=== PATIENT | female | born 1945 | race Caucasian/White ===

== ENCOUNTER 2016-10-14 15:01 | Emergency (ER) | payer MEDICARE, MEDICAID ==
[2016-10-14 18:59] VITALS: BP 146/62
[2016-10-14] MEDS ORDERED: Ondansetron ODT TAB* 4 MG PO ONE (19:47)
--- NOTE | 2016-10-14 20:31 | ED ---
Osmin Marcelino Erika, scribed for Bettie Augustine MD on 10/14/16 at 1949 . Abdominal Pain/Female - HPI Summary HPI Summary: Patient is a 71-year-old female presenting to the ED with a CC of abdominal cramping today. She reports that she had a sandwich around 10:00 today, after which she had two large, formed BMs. She states she rarely has BMs, so this was unusual for her. Afterwards, she developed lower abdominal cramping. These have since resolved, but pt does still note nausea. Pt denies chest pressure. Patient also reports that she does not feel safe at home. She describes herself as "intuitive," and states that she aware that "somebody is going to do something sinister." Pt also reports that she has been diagnosed with depersonalization schizophrenia and excitability. She takes risperidone. Hx hernia. Pt is a former smoker, and does not currently drink. She lives at [facility]. PCP Dr. Arroyo. - History of Current Complaint Chief Complaint: EDAbdPain Stated Complaint: ABD PAIN/NAUSEA Time Seen by Provider: 10/14/16 19:25 Hx Obtained From: Patient Onset/Duration: Gradual Onset, Lasting Hours, Resolved Timing: Constant Severity Initially: Mild Severity Currently: None Pain Intensity: 2 Pain Scale Used: 0-10 Numeric Location: Discrete At: RLQ, Discrete At: LLQ, Suprapubic Radiates: No Character: Cramping Aggravating Factor(s): Food Alleviating Factor(s): Spontaneous Resolution Associated Signs and Symptoms: Positive: Nausea Allergies/Adverse Reactions: Allergies Allergy/AdvReac Type Severity Reaction Status Date / Time No Known Allergies Allergy Verified 10/14/16 15:14 PMH/Surg Hx/FS Hx/Imm Hx Endocrine/Hematology History: Denies: Hx Diabetes, Hx Thyroid Disease Cardiovascular History: Denies: Hx Congestive Heart Failure, Hx Hypertension Respiratory History: Denies: Hx Asthma, Hx Chronic Obstructive Pulmonary Disease (COPD) GI History: Reports: Hx Gastroesophageal Reflux Disease, Other GI Disorders - Chronic constipation Denies: Hx Ulcer History: Denies: Hx Dialysis, Hx Renal Disease Musculoskeletal History: Reports: Hx Arthritis Sensory History: Reports: Hx Contacts or Glasses Opthamlomology History: Reports: Hx Contacts or Glasses Neurological History: Reports: Other Neuro Impairments/Disorders - Schizophrenia Psychiatric History: Reports: Hx Anxiety, Hx Inpatient Treatment, Hx Community Mental Health Tx, Hx Schizophrenia Denies: Hx Eating Disorder, Hx Depression, Hx Panic Disorder, Hx Post Traumatic Stress Disorder, Hx Suicide Attempt, Hx of Violent Episodes Against Others, Hx Substance Abuse Infectious Disease History: No Infectious Disease History: Denies: Hx Clostridium Difficile, Hx Hepatitis, Hx Human Immunodeficiency Virus (HIV), Hx of Known/Suspected MRSA, Hx Shingles, Hx Tuberculosis, Hx Known/ Suspected VRE, Hx Known/Suspected VRSA, History Other Infectious Disease, Traveled Outside the [place] in Last 30 Days - Family History Known Family History: Positive: Other - breast cancer - Social History Lives: Retirement - [facility] Alcohol Use: None Hx Substance Use: No Substance Use Type: Reports: None Hx Tobacco Use: Yes Smoking Status (MU): Former Smoker Review of Systems Negative: Chest Pain Positive: Abdominal Pain, Nausea, Other - increased BM frequency All Other Systems Reviewed And Are Negative: Yes Physical Exam Triage Information Reviewed: Yes Vital Signs On Initial Exam: Initial Vitals Temp Pulse Resp BP Pulse Ox 99.2 F 93 18 125/97 93 10/14/16 15:14 10/14/16 15:14 10/14/16 15:14 10/14/16 15:14 10/14/16 15:14 Vital Signs Reviewed: Yes Appearance: Positive: Well-Appearing, No Pain Distress Skin: Positive: Warm, Skin Color Reflects Adequate Perfusion, Dry Eyes: Positive: EOMI, JULIANA ENT: Positive: Pharynx normal, TMs normal Neck: Positive: Supple, Nontender Respiratory/Lung Sounds: Positive: Clear to Auscultation, Breath Sounds Present. Negative: Rales, Rhonchi, Wheezes Cardiovascular: Positive: RRR, Other - No gallops. Negative: Murmur, Rub Abdomen Description: Positive: Nontender, Soft, Other: - No rebound. Negative: Distended, Guarding Bowel Sounds: Positive: Present Musculoskeletal: Positive: Other - BING, no edema Neurological: Positive: Sensory/Motor Intact, Alert, Oriented to Person Place, Time, Other - CN II-XII intact Psychiatric: Positive: Other - Intention tremor, slightly unkempt Diagnostics - Vital Signs Vital Signs Temp Pulse Resp BP Pulse Ox 10/14/16 17:39 65 18 146/62 100 10/14/16 16:23 99.6 F 10/14/16 15:14 99.2 F 93 18 125/97 93 - Laboratory Lab Statement: Any lab studies that have been ordered have been reviewed, and results considered in the medical decision making process. Abdominal Pain Fem Course/Dx - Course Course Of Treatment: very pleasant 71 yo female with long hx of schizophrenia who does not feel safe in her sro, in that she doesn't trust people there, she ate a sandwich at 10 am had abd cramping for an hour and an extra bm, and then some nausea and thought she should come in for an exam. she describes some nausea now, no cp, no upper abd pain, pt refused blood work ok to go home - Diagnoses Provider Diagnoses: Abdominal pain Discharge - Discharge Plan Condition: Stable Disposition: HOME Patient Education Materials: Abdominal Pain (ED) Referrals: Aron Arroyo MD [Primary Care Provider] - The documentation as recorded by the Osmin brewster Erika accurately reflects the service I personally performed and the decisions made by me, Bettie Augustine MD.
== END 2016-10-14 20:12 | disposition home or self-care (01) ==
LOC: ED 15:01
DX: R10.9 Unspecified abdominal pain (principal); F20.9 Schizophrenia, unspecified; Z87.891 Personal history of nicotine dependence
CPT/HCPCS: 99282; A9270-GY

== ENCOUNTER 2018-01-13 14:07 | Inpatient (IN) | payer MEDICAID, MEDICARE ==
[2018-01-13 14:28] LABS: ABS Basophils 0.1 10^3/ul (0-0.2); ABS Eosinophils 0.1 10^3/ul (0-0.6); ABS Lymphocytes 2.3 10^3/ul (1.0-4.8); ABS Monocytes 0.7 10^3/ul (0-0.8); ABS Neutrophils 5.9 10^3/ul (1.5-7.7); ABS Nucleated RBC 0 10^3/ul; Eosinophil % 0.8 % (0-6); Hematocrit 36 % (35-47); Hemoglobin 12.2 g/dl (12.0-16.0); Lymphocyte % 25.9 % (25-47); Mean Corpuscular HGB Conc 34 g/dl (31-36); Mean Corpuscular Hemoglobin 30 pg (27-31); Mean Corpuscular Volume 88 fL (80-97); Mean Platelet Volume 7.3 um3 (7.4-10.4); Nucleated Red Blood Cells % 0.1; Platelet Count 306 10^3/ul (150-450); Red Blood Count 4.12 10^6/ul (4.0-5.4); Red Cell Distribution Width 15 % (10.5-15)
[2018-01-13 14:50] LABS: EGFR Non-African American 85.5 (>60)
[2018-01-13 17:58] LABS: Urine Appearance Clear; Urine Blood 3+ (Negative); Urine Color Yellow; Urine Ketones Trace (Negative); Urine Protein Negative (Negative); Urine Urobilinogen Negative (Negative)
--- NOTE | 2018-01-13 18:38 | ED ---
Tyree Marcelino Stephanie, scribed for Shawn Steven MD on 01/13/18 at 1415 . Psychiatric Complaint - HPI Summary HPI Summary: The pt is a 72 y/o F presenting to the ED with c/o sleep disturbances that began about 1 week ago. Symptoms include decreased PO intake. The pt states she is afraid of single room occupancy. The pt states she feels endangered where she lives although she has lived there for 11 years. The pt states she lives at [place]. The pt denies CP, abd pain and SOB. - History Of Current Complaint Time Seen by Provider: 01/13/18 14:12 Hx Obtained From: Patient ?: No Onset/Duration: Gradual Onset, Lasting Weeks - 1, Still Present Timing: Constant Severity Currently: Moderate Aggravating Factor(s): Nothing Alleviating Factor(s): Nothing Associated Signs And Symptoms: Positive: Sleep Disturbance, Appetite Change - Allergies/Home Medications Allergies/Adverse Reactions: Allergies Allergy/AdvReac Type Severity Reaction Status Date / Time No Known Allergies Allergy Verified 01/05/18 23:47 PMH/Surg Hx/FS Hx/Imm Hx Endocrine/Hematology History: Denies: Hx Diabetes Cardiovascular History: Reports: Hx Myocardial Infarction Denies: Hx Hypertension Sensory History: Denies: Hx Legally Blind EENT History: Denies: Hx Deafness Psychiatric History: Reports: Hx Schizophrenia - Surgical History Surgery Procedure, Year, and Place: n/a - Family History Known Family History: Negative: Diabetes - Social History Occupation: Disabled Lives: Alone Alcohol Use: None Hx Substance Use: No Substance Use Type: Reports: None Hx Tobacco Use: No Smoking Status (MU): Never Smoked Tobacco Have You Smoked in the Last Year: No Review of Systems Negative: Fever Negative: Chest Pain Negative: Shortness Of Breath Negative: Abdominal Pain All Other Systems Reviewed And Are Negative: Yes Physical Exam - Summary Physical Exam Summary: Appearance: The patient is well-nourished in no acute distress and in no acute pain. Skin: The skin is warm and dry and skin color reflects adequate perfusion. HEENT: The head is normocephalic and atraumatic. The pupils are equal and reactive. The conjunctivae are clear and without drainage. Nares are patent and without drainage. Mouth reveals moist mucous membranes and the throat is without erythema and exudate. The external ears are intact. The ear canals are patent and without drainage. The tympanic membranes are intact. Neck: the neck is supple with full range of motion and non-tender. There are no carotid bruits. There is no neck vein distension. Respiratory: Chest is non-tender. Lungs are clear to auscultation and breath sounds are symmetrical and equal. Cardiovascular: Heart is regular rate and rhythm. There is no murmur or rub auscultated. There is no peripheral edema and pulses are symmetrical and equal. Abdomen: The abdomen is soft and non-tender. There are normal bowel sounds heard in all four quadrants and there is no organomegaly palpated. Musculoskeletal: There is no back tenderness noted. Extremities are non-tender with full range of motion. There is good capillary refill. There is no peripheral edema or calf tenderness elicited. Neurological: Patient is alert and oriented to person, place and time. The patient has symmetrical motor strength in all four extremities. Cranial nerves are grossly intact. Deep tendon reflexes are symmetrical and equal in all four extremities. Psychiatric: The patient has a resting tremor on the R hand, concrete with a flat affect. Triage Information Reviewed: Yes Vital Signs On Initial Exam: Initial Vitals Temp Pulse Resp BP Pulse Ox 99.4 F 86 20 147/76 98 01/13/18 14:56 01/13/18 14:56 01/13/18 14:56 01/13/18 14:56 01/13/18 14:56 Vital Signs Reviewed: Yes Diagnostics - Vital Signs Vital Signs Temp Pulse Resp BP Pulse Ox 01/13/18 14:56 99.4 F 86 20 147/76 98 - Laboratory Lab Results: Lab Results 01/13/18 01/13/18 01/13/18 Range/Units 14:17 14:17 17:43 WBC 9.0 (3.5-10.8) 10^3/ul RBC 4.12 (4.0-5.4) 10^6/ul Hgb 12.2 (12.0-16.0) g/dl Hct 36 (35-47) % MCV 88 (80-97) fL MCH 30 (27-31) pg MCHC 34 (31-36) g/dl RDW 15 (10.5-15) % Plt Count 306 (150-450) 10^3/ul MPV 7.3 L (7.4-10.4) um3 Neut % (Auto) 64.9 (38-83) % Lymph % (Auto) 25.9 (25-47) % Dubois % (Auto) 7.7 H (0-7) % Eos % (Auto) 0.8 (0-6) % Baso % (Auto) 0.7 (0-2) % Absolute Neuts (auto) 5.9 (1.5-7.7) 10^3/ul Absolute Lymphs (auto) 2.3 (1.0-4.8) 10^3/ul Absolute Monos (auto) 0.7 (0-0.8) 10^3/ul Absolute Eos (auto) 0.1 (0-0.6) 10^3/ul Absolute Basos (auto) 0.1 (0-0.2) 10^3/ul Absolute Nucleated RBC 0 10^3/ul Nucleated RBC % 0.1 Sodium 141 (139-145) mmol/L Potassium 3.9 (3.5-5.0) mmol/L Chloride 106 (101-111) mmol/L Carbon Dioxide 27 (22-32) mmol/L Anion Gap 8 (2-11) mmol/L BUN 17 (6-24) mg/dL Creatinine 0.68 (0.51-0.95) mg/dL Est GFR ( Amer) 110.0 (>60) Est GFR (Non-Af Amer) 85.5 (>60) BUN/Creatinine Ratio 25.0 H (8-20) Glucose 100 (70-100) mg/dL Calcium 9.4 (8.6-10.3) mg/dL Total Bilirubin 0.40 (0.2-1.0) mg/dL AST 25 (13-39) U/L ALT 16 (7-52) U/L Alkaline Phosphatase 59 (34-104) U/L Total Protein 7.3 (6.4-8.9) g/dL Albumin 4.1 (3.2-5.2) g/dL Globulin 3.2 (2-4) g/dL Albumin/Globulin Ratio 1.3 (1-3) TSH 0.77 (0.34-5.60) mcIU/mL Urine Color Yellow Urine Appearance Clear Urine pH 6.0 (5-9) Ur Specific Wenham 1.020 (1.010-1.030) Urine Protein Negative (Negative) Urine Ketones Trace A (Negative) Urine Blood 3+ A (Negative) Urine Nitrate Negative (Negative) Urine Bilirubin Negative (Negative) Urine Urobilinogen Negative (Negative) Ur Leukocyte Esterase 1+ A (Negative) Urine WBC (Auto) 1+(6-10/hpf) A (Absent) Urine RBC (Auto) 3+(>10/hpf) A (Absent) Urine Bacteria 1+ A (Absent) Urine Glucose Negative (Negative) Salicylates < 2.50 (<30) mg/dL Urine Opiates Screen (None Detect) Acetaminophen < 15 mcg/mL Ur Barbiturates Screen (None Detect) Ur Phencyclidine Scrn (None Detect) Ur Amphetamines Screen (None Detect) U Benzodiazepines Scrn (None Detect) Urine Cocaine Screen (None Detect) U Cannabinoids Screen (None Detect) Serum Alcohol < 10 (<10) mg/dL 01/13/18 Range/Units 17:43 WBC (3.5-10.8) 10^3/ul RBC (4.0-5.4) 10^6/ul Hgb (12.0-16.0) g/dl Hct (35-47) % MCV (80-97) fL MCH (27-31) pg MCHC (31-36) g/dl RDW (10.5-15) % Plt Count (150-450) 10^3/ul MPV (7.4-10.4) um3 Neut % (Auto) (38-83) % Lymph % (Auto) (25-47) % Dubois % (Auto) (0-7) % Eos % (Auto) (0-6) % Baso % (Auto) (0-2) % Absolute Neuts (auto) (1.5-7.7) 10^3/ul Absolute Lymphs (auto) (1.0-4.8) 10^3/ul Absolute Monos (auto) (0-0.8) 10^3/ul Absolute Eos (auto) (0-0.6) 10^3/ul Absolute Basos (auto) (0-0.2) 10^3/ul Absolute Nucleated RBC 10^3/ul Nucleated RBC % Sodium (139-145) mmol/L Potassium (3.5-5.0) mmol/L Chloride (101-111) mmol/L Carbon Dioxide (22-32) mmol/L Anion Gap (2-11) mmol/L BUN (6-24) mg/dL Creatinine (0.51-0.95) mg/dL Est GFR ( Amer) (>60) Est GFR (Non-Af Amer) (>60) BUN/Creatinine Ratio (8-20) Glucose (70-100) mg/dL Calcium (8.6-10.3) mg/dL Total Bilirubin (0.2-1.0) mg/dL AST (13-39) U/L ALT (7-52) U/L Alkaline Phosphatase (34-104) U/L Total Protein (6.4-8.9) g/dL Albumin (3.2-5.2) g/dL Globulin (2-4) g/dL Albumin/Globulin Ratio (1-3) TSH (0.34-5.60) mcIU/mL Urine Color Urine Appearance Urine pH (5-9) Ur Specific Wenham (1.010-1.030) Urine Protein (Negative) Urine Ketones (Negative) Urine Blood (Negative) Urine Nitrate (Negative) Urine Bilirubin (Negative) Urine Urobilinogen (Negative) Ur Leukocyte Esterase (Negative) Urine WBC (Auto) (Absent) Urine RBC (Auto) (Absent) Urine Bacteria (Absent) Urine Glucose (Negative) Salicylates (<30) mg/dL Urine Opiates Screen None detected (None Detect) Acetaminophen mcg/mL Ur Barbiturates Screen None detected (None Detect) Ur Phencyclidine Scrn None detected (None Detect) Ur Amphetamines Screen None detected (None Detect) U Benzodiazepines Scrn None detected (None Detect) Urine Cocaine Screen None detected (None Detect) U Cannabinoids Screen None detected (None Detect) Serum Alcohol (<10) mg/dL Result Diagrams: 01/13/18 14:17 01/13/18 14:17 Lab Statement: Any lab studies that have been ordered have been reviewed, and results considered in the medical decision making process. Course/Dx - Course Course Of Treatment: Ms. Wilburn presents with some paramoia about her living situation. She was cooperative here and medically cleared and is currently waiting for a MHE. - Differential Dx/Clinical Impression Provider Diagnosis: Delusional disorder Discharge - Sign-Out/Discharge Documenting (check all that apply): Sign-Out Patient Signing out patient TO: Kiersten Landry - Discharge Plan Condition: Stable Referrals: Aron Arroyo MD [Primary Care Provider] - - Billing Disposition and Condition Condition: STABLE The documentation as recorded by the Tyree brewster Stephanie accurately reflects the service I personally performed and the decisions made by me, Shawn Steven MD.
--- NOTE | 2018-01-13 20:26 | ED ---
Ephraim Marcelino Nikita, scribed for Kiersten Landry MD on 01/13/18 at 2016 . Progress - Progress Note Progress Note: This patient was signed out from Dr. Steven to Dr. Landry, pending disposition, awaiting MHE. MHE done at 1907. The patient will be admitted to [facility] voluntarily to Dr. Augustine with a dx of schizophrenia. The patient agrees with this plan. - Consult/PCP Time Called: 18:00 Course/Dx - Diagnoses Provider Diagnoses: Schizophrenia Discharge - Sign-Out/Discharge Documenting (check all that apply): Receiving Sign-Out Receiving patient FROM: Shawn Steven - Discharge Plan Condition: Stable Disposition: ADMITTED TO [facility] Referrals: Aron Arroyo MD [Primary Care Provider] - The documentation as recorded by the Ephraim brewster Nikita accurately reflects the service I personally performed and the decisions made by Frantz montes Abdul, MD.
[2018-01-13] MEDS ORDERED: Al Hydrox/Mg Hydrox/Simet LIQ* 30 ML UDC PO PRN (20:33)
[2018-01-13] MEDS ORDERED: Acetaminophen TAB* 325 MG PO PRN (20:33)
[2018-01-13] MEDS ORDERED: Ondansetron ODT TAB* 4 MG PO PRN (20:38)
[2018-01-13] MEDS ORDERED: Aspirin TAB* 325 MG PO PRN (20:38)
[2018-01-13] MEDS ORDERED: Ziprasidone CAP* 80 MG ONE (22:33)
[2018-01-13] MEDS: Ziprasidone CAP* 80 MG PO SCH (22:34)
[2018-01-14] MEDS ORDERED: Ondansetron ODT TAB* 4 MG ONE (00:07)
[2018-01-14] MEDS: Vitamin THERAPEUTIC TAB PO SCH (09:48)
--- NOTE | 2018-01-14 14:09 | CONS ---
CC: Dr. Arroyo * [facility] MEDICINE CONSULTATION REPORT: DATE OF CONSULT: 01/14/18 PRIMARY CARE PHYSICIAN: Dr. Arroyo. ATTENDING PHYSICIAN: Elaine Ramires MD (dictation provided by Ranjana Jefferson NP). REASON FOR CONSULTATION: Medical management of possible CAD. HISTORY OF PRESENT ILLNESS: Ms. Wilburn is a 72-year-old female with a past medical history of schizophrenia, who presented to the hospital on 01/13/18 with concern for paranoia. She presents as Emanuel Wilburn today but is also known as Marlin Cordova. Please see the dictated information from the emergency room providers for complete details as well as the history and physical from the mental health provider, which is pending. The patient was reported to feel paranoid about people trying to harm her in the community and deemed appropriate for admission to the mental health unit. The patient reported a history of mitral valve prolapse to the psychiatrist and [facility] was asked to review the case. Ms. Wilburn does confirm that she has this history of mitral valve prolapse. She states she has no other cardiac history. She denies ever having seen a health and safety technician. She follows with Dr. Arroyo outpatient for her primary care provider, she says "sometimes." She cannot tell me the last time she saw him. She reports that she is healthy and takes no medications regularly other than the Geodon. She denies any symptoms for me today. She reports that she would be easily able to walk up a flight of stairs with no problems. She has no chest pain or shortness of breath with her regular activities. She further denies nausea, vomiting, abdominal pain, dysuria or frequency. On review yesterday, Ms. Wilburn had labs, which showed normal hemoglobin and hematocrit. She has known electrolyte abnormalities. Her hemoglobin A1c is 5.8. Her cholesterol is quite good with LDL of 122, HDL of 76.1, total cholesterol 210. Her urine does show 1+ leuk esterase and 1+ bacteria. PAST MEDICAL HISTORY: 1. Questionable mitral valve prolapse per the patient's report. 2. Schizophrenia. ALLERGIES: No known drug allergies. FAMILY HISTORY: Reviewed and noncontributory. SOCIAL HISTORY: No report of alcohol, tobacco or drug use. The patient lives alone at [place]. REVIEW OF SYSTEMS: A 14-point review of systems was completed with Ms. Wilburn and all those not mentioned above were negative. PHYSICAL EXAM: Vital Signs: Temperature 97.5, pulse rate 59, respiratory rate 16, O2 saturation 98% on room air, blood pressure 106/63. General: Ms. Wilburn is found in the milieu speaking with counselors and she is smiling and cooperative. Neuro: She is alert. She is oriented x3. She moves all extremities equally. There is no facial asymmetry or focal weakness. Extraocular movements are intact. Heart: S1 and S2. No murmur, rub or gallop today. Lungs: Clear to auscultation bilaterally with no accessory muscle use and good aeration. Abdomen: Soft and nontender with bowel sounds positive x4. Extremities: No cyanosis, no edema. Skin is intact. DIAGNOSTIC STUDIES/LAB DATA: Again, the WBC is 9.0, hemoglobin 12.2, hematocrit 36, platelet count 306. Sodium 141, potassium 3.9, chloride 106, serum bicarbonate 27, BUN 17, creatinine 0.68, glucose 100. Hemoglobin A1c 5.8. Urine shows 1+ leuk esterase, 1+ bacteria. Toxicology screen is negative. ASSESSMENT: Ms. Wilburn is a 72-year-old female with a known history of schizophrenia, who was admitted to the mental health unit on 01/13/18 with concern of paranoia. Psychiatrist has consulted medical team regarding management of any possible associated medical conditions. RECOMMENDATIONS: Our recommendations are as follows: 1. Schizophrenia. Continue management per mental health team. 2. Mitral valve prolapse. The patient has no significant murmur on examination today. She is completely asymptomatic per her report. It will be helpful to get the records from Dr. Arroyo's office on Tuesday to help further clarify her medical history as given her associated schizophrenia and she may be a poor historian. 3. CAD. Patient denies. The patient has no other abnormality on labs or vital signs that would require any management and again she is asymptomatic. On Tuesday, we can review the records from Dr. Arroyo's office. In the meantime , if the patient becomes symptomatic in any way, the team has been asked to call Hospital Medicine. 4. Urinary tract infection. The patient does have a positive leukocyte esterase and bacteria. However, she was here on 01/06/18 and had a urine culture which was negative. The patient denies any symptoms at this point. IPlan to await urine culture before beginning any antibiotics given that she is asymptomatic. 5. Code status is full code. 6. Hospital Medicine will follow along at a distance. If there are any questions, please do not hesitate to contact us. TIME SPENT: Approximately 40 minutes was spent on the consultation of this patient, more than half the time was spent with the patient at the bedside reviewing the events of this hospitalization thus far and her medical history, performing the physical examination, and reviewing the plan of care. RANJANA JEFFERSON, DEMETRA [id number]/CPS #: [id number] JORGE
--- NOTE | 2018-01-14 16:04 | HP ---
HISTORY AND PHYSICAL: DATE OF ADMISSION: 01/13/18 SOURCE OF INFORMATION: The patient is a limited historian. This note is dictated based on interview with the patient and admission data. Although the patient reports a history of previous admissions here, I could not find previous records. IDENTIFYING DATA: Ms. Wilburn is a 72-year-old female, [facility] resident, who was brought in by ambulance from her facility and she was admitted on voluntary status. CHIEF COMPLAINT: "I guess nervous exhaustion!" HISTORY OF PRESENT ILLNESS: Emanuel reports having diagnoses of schizophrenia and "depersonalization disorder," for which she is in outpatient treatment at [facility] and she is prescribed Geodon. She relates that her living environment is "getting too much to handle" and that she is in the process of moving to another facility at the [facility]. She is convinced that her food is being tampered with, asserts that she saw staff member put hand lotion in her food and her lips felt different after ingesting the food. She has resorted to eating as little as possible at her facility. She also complains that "nobody likes her there" and she does not like the staff and the other residents herself. She avidly denies any auditory or visual hallucinations. Notes indicate that the patient was sent by ambulance from the [facility] by facility staff because she had been increasingly paranoid over recent weeks, she was convinced that others were out to get her. She had demonstrated agitation and lack of sleep for several days to week. She had also not been able to care for herself and to engage in activities of daily living. REVIEW OF PSYCHIATRIC SYMPTOMS: The patient avidly denies persistently depressed mood. She denies symptoms of giselle, although she presents as somewhat pressured in speech with flight of idea and she endorses irritability and mood lability. The patient has diagnosis of schizophrenia. She denies auditory or visual hallucinations. She describes paranoid delusions that her food is being tampered with, that she is not liked by others and that others are out to get her. She is also disorganized in her thinking and her behavior. She denies difficulty with anxiety. She denies any history of trauma or abuse or PTSD symptoms. She denies history of substance abuse. She denies symptoms of eating disorder. PAST PSYCHIATRIC HISTORY: The patient relates this is either her third or fourth inpatient psychiatric admission here in this facility and the most recent time was about 2 years ago. I could not find previous records. She is diagnosed with schizophrenia. She has been in outpatient care of [facility] for over 10 years. She sees a community nurse, Gerald Haile, and outpatient psychiatrist, Dr. Marlena Anderson. She is prescribed Geodon 40 mg daily at bedtime, but admits to only taking half the dose and to using the medication for insomnia because she does not think that she has any mental illness. SUICIDE/HOMICIDE HISTORY: The patient denies previous jonas suicide attempt, history of self-injury, or violence. PAST MEDICAL HISTORY: She denies any active medical problems, any history of head trauma with loss of consciousness, seizures or surgeries. She is followed at [facility] by Dr. Aron Arroyo. PAST SURGICAL HISTORY: Umbilical hernia repair about 2 years ago. FAMILY HISTORY: The patient denies any family history of psychiatric illnesses or completed suicides. PERSONAL AND SOCIAL HISTORY: The patient relates that she was born in [place], [place]. She grew up with both parents and a sister who is 2 years older and a brother who is 10 years younger. Both parents are . She is remote from siblings. She has a 1st grade education, but is able to read. 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 She asserts that she has been for 9 years and that her lives in the same facility that she does. She describes unhappiness with her living situation there and her efforts to move out. REVIEW OF MEDICAL SYMPTOMS: The patient presents with some degree of hirsutism with facial hair. PHYSICAL EXAMINATION GENERAL: She does not appear, however, to be in any acute physical distress. She is alert, oriented x3. HEENT: Head atraumatic, normocephalic, symmetrical. Eyes: PERRLA. Tympanic membranes intact. Sclerae anicteric. Conjunctivae clear. NECK: Trachea midline, freely mobile. No cervical lymphadenopathy. No nuchal rigidity. LUNGS: Clear to auscultation bilaterally. HEART: Regular rate and rhythm. S1, S2. No murmurs, gallops, or rubs. BREASTS: Exam not performed. ABDOMEN: Soft, nontender. No masses, organomegaly, or rebound tenderness. Active bowel sounds in all 4 quadrants. EXTREMITIES: No pain or limitation in the range of movement. Pulses are equal in all 4 extremities. Fine tremors of upper extremities are observed. GENITALIA: Exam not performed. RECTAL: Exam not performed. NEUROLOGIC: Cranial nerves II through XII are intact. Cerebellar function intact. Muscle strength grade 4/5 in all 4 extremities. STRUCTURAL EXAM: The patient examined in both supine and upright positions. No gross AP or lateral asymmetry. Gait and movement are within normal limits. SKIN: Skin texture, turgor and pigmentation are within normal limits. LABORATORY DATA ON ADMISSION: CBC within normal limits. Complete metabolic panel shows BUN/creatinine ratio of 25. Hemoglobin A1c of 5.8. Urinalysis shows trace of ketones, 3+ blood, 1+ leukocyte esterase, 1+ wbc's, 3+ rbc's, 1+ urine bacteria. Urine toxicology screen is negative for all the tested substances. MENTAL STATUS EXAMINATION: Finds an averagely built 72-year-old white female with long uncombed graying hair, wearing a collared button shirt and jeans. She presents as somewhat disheveled. She is however calm, psychotically related. Some tremors of her upper extremities are observed. Speech has a pressured quality. Her affect is irritable. Mood is dysphoric. There is some evidence of flight of idea and tangentiality. She avidly denies auditory or visual hallucinations, but does present as grossly delusional. She denies suicidal or homicidal ideation or urges to self-mutilate and she contracts for safety. Insight and judgment are grossly impaired. Impulse control is tenuous in this setting. She is alert. She is oriented to time, place and person. SUMMARY: A 72-year-old female with history of psychiatric hospitalizations, questionable adherence to outpatient care, previous diagnosis of schizophrenia, who was referred from [facility] by ambulance because of increasing paranoia, agitation and inability to care for herself. Medical history is unremarkable. The patient denies any family history of psychiatric illnesses or completed suicide. She describes stressors of unhappiness with her current living situation and feeling somewhat socially isolated. DIAGNOSTIC IMPRESSIONS: Schizophrenia, chronic, paranoid type. TREATMENT PLAN: Admit to mental health unit, 15-minute checks, full code status. Legal status is voluntary. Initiate comprehensive milieu, individual and group psychotherapeutic support. Medication management will involve continuation of trial of Geodon 80 mg at bedtime and consulting with Dr. Anderson on Tuesday. Discharge planning will involve coordination of her aftercare with [facility] and [facility]. [id number]/CPS #: [id number] JORGE
[2018-01-14] MEDS: Ziprasidone CAP* 80 MG PO SCH (22:04)
[2018-01-15] MEDS: Vitamin THERAPEUTIC TAB PO SCH (09:31)
[2018-01-15] MEDS: Ziprasidone CAP* 80 MG PO SCH (22:22)
[2018-01-16 07:42] VITALS: BP 135/77
[2018-01-16] MEDS: Vitamin THERAPEUTIC TAB PO SCH (08:35)
--- NOTE | 2018-01-18 08:22 | DS ---
AMENDED REPORT NOW INCLUDES COSIGNER DESIGNATION - ESIGNED BEFORE ADJUSTMENT CC: [facility], Dr. Anderson; Daniel Haile; Dr. Arroyo, primary care provider * DISCHARGE SUMMARY: DATE OF ADMISSION: 01/13/18 DATE OF DISCHARGE: 01/16/18 PRIMARY CARE PROVIDER: Dr. Arroyo. ATTENDING PROVIDER: Tito Augustine MD* (DICTATED BY FLOR WHITE NP) DISCHARGE DIAGNOSIS: Schizophrenia. CONDITION AT TIME OF DISCHARGE: Guarded, unchanged. The patient states she came to the hospital because she needed to get away from the [facility] for a few days. The patient states "but now I am better and I want to leave." She states that she does not like the food, the people or the environment here and is eager to return to the [facility]. She states that her lives next door and they have a positive relationship. The patient states that she goes to see Daniel Haile at the clinic but primarily does go to people who work for him. She states she does not need nor is she interested in therapy. She reports taking her medications. The patient has requested to talk with us either about need for a sleep aid and she states she would rather pursue this through her outpatient psychiatrist, Dr. Anderson, as Demetriana primarily helps her sleep. The patient denies paranoia. She states that no one is threatening her or wanting to kill her. She feel safe at the [facility] and denies SI, HI or . MENTAL STATUS EXAM: The patient is petite, black haired woman who appears stated age. She is adequately groomed. She has combed her hair and wearing her own clothing. She oscillates between cooperative and irritable. She is alert and oriented x3. Her memory is 3/3. Her fund of knowledge is adequate. Speech is normal rhythm, rate and volume. Her mood is initially irritable and euthymic. Her affect is restricted. Thought process is linear with evidence of future orientation. Thought content is positive for fixed delusions. The patient has poor insight, she has schizophrenia. Her judgement is good. She is able to perform her own ADL's. Fund of knowledge is adequate. DISCHARGE INSTRUCTIONS: A. Medications: Were unchanged. As she was here less than 4 days, we did not need to renew her prescriptions. She will continue with the followin. Aspirin 650 mg p.o. q.4 hours p.r.n. fever, pain. 2. Ondansetron 4 mg p.o. t.i.d. p.r.n. nausea. 3. Ziprasidone 80 mg p.o. at bedtime. B. Diet: Regular. C. Activity: Ambulation as tolerated. D. Tobacco cessation: Not applicable. There are no studies pending at the time of discharge. E. Followup care: The patient will follow up at [facility] with her nurse therapist Daniel February, 01/13/18, at 4 p.m. and she will see the psychiatrist, Dr. Anderson, , 01/26/18, at 3 p.m. She has an appointment with her primary care provider Dr. Arroyo on Tuesday at 1 p.m. F. Substance abuse followup: Not applicable. HOSPITAL COURSE: Part A: Reason for admission: Emanuel is a 72-year-old domicile white female. She has a history of changing her names often. She has also been known as Marlin Cordova and Irina Prather. She is well known to this [facility] and to this unit due to previous admissions. She presented to the emergency department via ambulance and referred by the [facility]. She was noted to have paranoia at the [facility]. There has been hope moving to another facility called [facility]. The patient reported her food was being tampered with and had paranoid delusions about this fact as well. The patient was agreeable to admission to the [facility] and admitted on a voluntary basis. While in the emergency department, her lab was done. CBC was grossly unremarkable. CMP within normal limits with her BUN and creatinine ratio of 25. TSH 0.77. She had a hemoglobin A1c and lipid panel due to antipsychotic treatment. A1c was 5.8. Lipid panel within normal limits. Urinalysis was positive for ketones, blood and bacteria. Urine culture came back negative. Toxicology negative for salicylates, acetaminophen and alcohol and her urine drug screen was negative. Part B: Psychiatric treatment rendered: The patient was admitted to the adult behavioral service unit on voluntary status on code status as full. She was encouraged to participate in supportive milieu and individual sessions with staff and psychoeducational groups. Her usual behavior, the patient was isolative and did not participate in groups. She was verbally aggressive at times but otherwise in behavioral control. The patient was compliant with medication and was safe on all checks. Due to her cardiac history, hospitalist service was consulted. The patient has a history of MT and MVP. As stated above, the patient was asymptomatic and there was no need for treatment with antibiotics as her urine culture was negative. On day of discharge, the patient reported readiness. She stabilized rapidly and improved after her first full day. No medications were done. The patient has agreed to continue with current regimen, tried to reach out to her nurse therapist and there has not been any significant collateral information that would cause alarm or need for continued hospitalization. Social Work collaborated with [facility] who agreed to have patient return. Due to obligation for treatment with respective studies, treatment team decided upon discharge. Again, patient denies SI, HI or . She has fixed delusions about schizophrenia being related to cult. She states she no longer watches TV shows and movies that cause depersonalization. The patient was very much appreciative and noted to have improvement in affect and communication when notified of planned discharge. FLOR WHITE NP [id number]/CPS #: [id number] JORGE
== END 2018-01-16 17:05 | disposition home or self-care (01) | DRG 885 ==
LOC: ED 14:07 → MERGE 22:44 → BSU 22:44
PROVIDERS: ADMIT Psychiatry & Neurology Psychiatry; ATTEND Psychiatry & Neurology Psychiatry
DX: F20.0 Paranoid schizophrenia (principal)
CPT/HCPCS: 36415; 80053; 80061; 80307; 80320; 80329; 81003; 81015; 83036; 84443; 85025; 87086; 99222; 99238; 99284; A9270-GY; G0480

== ENCOUNTER 2018-02-17 11:22 | Emergency (ER) | payer MEDICAID, MEDICARE ==
[2018-02-17 11:28] VITALS: BP 152/125
[2018-02-17] MEDS ORDERED: Acetaminophen TAB* 325 MG PO ONE (11:42)
--- NOTE | 2018-02-17 13:36 | ED ---
Upper Extremity Pain - HPI Summary HPI Summary: Patient is a 73-year-old female who presents emergency department for right upper arm pain times one and half years. Patient does not recall any specific injuries or falls. Pain is worse with movement and better with rest. She states she has not taken any medication [id number] for discomfort. Patient states she presents to the ER today to have pain fixed. Past medical history of schizophrenia. Symptoms are mild in severity. - History of Current Complaint Chief Complaint: EDExtremityUpper Stated Complaint: RT UPPER EXTREMITY PAIN Time Seen by Provider: 02/17/18 11:30 Hx Obtained From: Patient - Allergies/Home Medications Allergies/Adverse Reactions: Allergies Allergy/AdvReac Type Severity Reaction Status Date / Time No Known Allergies Allergy Verified 02/17/18 11:24 PMH/Surg Hx/FS Hx/Imm Hx Previously Healthy: Yes Endocrine/Hematology History: Denies: Hx Diabetes, Hx Thyroid Disease Cardiovascular History: Reports: Hx Myocardial Infarction Denies: Hx Congestive Heart Failure, Hx Hypertension Respiratory History: Denies: Hx Asthma, Hx Chronic Obstructive Pulmonary Disease (COPD) GI History: Reports: Hx Gastroesophageal Reflux Disease, Other GI Disorders - Chronic constipation Denies: Hx Ulcer History: Denies: Hx Dialysis, Hx Renal Disease Musculoskeletal History: Reports: Hx Arthritis Sensory History: Denies: Hx Contacts or Glasses, Hx Legally Blind, Hx Deafness, Hx Hearing Aid Opthamlomology History: Denies: Hx Contacts or Glasses, Hx Legally Blind Neurological History: Reports: Other Neuro Impairments/Disorders - Schizophrenia Psychiatric History: Reports: Hx Anxiety, Hx Inpatient Treatment, Hx Community Mental Health Tx, Hx Schizophrenia Denies: Hx Eating Disorder, Hx Depression, Hx Panic Disorder, Hx Post Traumatic Stress Disorder, Hx Suicide Attempt, Hx of Violent Episodes Against Others, Hx Substance Abuse - Surgical History Surgery Procedure, Year, and Place: n/a Infectious Disease History: No Infectious Disease History: Denies: Hx Clostridium Difficile, Hx Hepatitis, Hx Human Immunodeficiency Virus (HIV), Hx of Known/Suspected MRSA, Hx Shingles, Hx Tuberculosis, Hx Known/ Suspected VRE, Hx Known/Suspected VRSA, History Other Infectious Disease, Traveled Outside the [place] in Last 30 Days - Family History Known Family History: Positive: Other - breast cancer Negative: Diabetes - Social History Alcohol Use: None Hx Substance Use: No Substance Use Type: Reports: None Hx Tobacco Use: No Smoking Status (MU): Never Smoked Tobacco Amount Used/How Often: pt has not used any tobacco products in the last 30 days. Have You Smoked in the Last Year: No Review of Systems Positive: Other - Right shoulder pain. No neck pain. Neurological: Negative Negative: Weakness, Paresthesia, Numbness All Other Systems Reviewed And Are Negative: Yes Physical Exam Triage Information Reviewed: Yes Vital Signs On Initial Exam: Initial Vitals Temp Pulse Resp BP Pulse Ox 97 F 72 16 152/125 98 02/17/18 11:26 02/17/18 11:26 02/17/18 11:26 02/17/18 11:26 02/17/18 11:26 Vital Signs Reviewed: Yes Appearance: Positive: No Pain Distress Skin: Positive: Warm, Dry Head/Face: Positive: Normal Head/Face Inspection Eyes: Positive: Normal Neck: Positive: Supple Musculoskeletal: Positive: Other - Right upper extremity is neurovascular intact. No edema, erythema or wounds. Full range of motion of shoulder with pain. Neurological: Positive: Normal, CN Intact II-III Psychiatric: Positive: Anxious Diagnostics - Vital Signs Vital Signs Temp Pulse Resp BP Pulse Ox 02/17/18 12:16 97 F 72 18 152/125 97 02/17/18 11:26 97 F 72 16 152/125 98 - Laboratory Lab Statement: Any lab studies that have been ordered have been reviewed, and results considered in the medical decision making process. Course/Dx - Course Course Of Treatment: Patient presenting for right shoulder pain times 1.5 yrs without recent injury. She states she's never seen her family doctor for this issue or had x-rays. Offered patient x-rays today which she declined. Patient states she feels the radiation from the x-ray will harm her. Pt. states she just wants her pain treated today. She was given a dose of tylenol in the ER and a rx for tylenol. Advised her to call her PCP today for a f.u apt. To return to ER if sxs change or worsen. - Diagnoses Differential Diagnosis/HQI/PQRI: Positive: Arthritis, Bursitis, Contusion, Fracture (Closed), Hematoma, Strain, Sprain Provider Diagnoses: Shoulder pain Discharge - Sign-Out/Discharge Documenting (check all that apply): Discharge/Admit/Transfer - Discharge Plan Condition: Good Disposition: HOME Prescriptions: Acetaminophen TAB* [Tylenol TAB*] 650 mg PO Q6H PRN #20 tab PRN Reason: Pain Patient Education Materials: Shoulder Pain (ED) Referrals: Aron Arroyo MD [Primary Care Provider] - Additional Instructions: Call your PCP today for a follow up appointment Tylenol as directed for pain Return to ER if symptoms change or worsen - Billing Disposition and Condition Condition: GOOD Disposition: Home
== END 2018-02-17 12:05 | disposition home or self-care (01) ==
LOC: ED 11:22
DX: M25.511 Pain in right shoulder (principal)
CPT/HCPCS: 99282; A9270-GY

== ENCOUNTER 2018-06-03 10:02 | Emergency (ER) | payer MEDICARE, MEDICAID ==
--- NOTE | 2018-06-03 10:26 | ED ---
Complex/Multi-Sys Presentation - HPI Summary HPI Summary: 73 year old F BIB EMS to [facility] complains of nausea since one hour ago this morning after eating breakfast. Symptoms aggravated by nothing. Symptoms alleviated by nothing. Patient denies abdominal pain, vomiting, chest pain, shortness of breath, headache, blurred vision, bilateral lower extremity edema, and dysuria. - History Of Current Complaint Time Seen by Provider: 06/03/18 10:15 Hx Obtained From: Patient Onset/Duration: Sudden Onset, Lasting Hours - 1, Still Present Timing: Constant Aggravating Factor(s): nothing Alleviating Factor(s): nothing Associated Signs And Symptoms: Positive: Other - she denies abdominal pain, vomiting, chest pain, shortness of breath, headache, blurred vision, bilateral lower extremity edema, and dysuria - Allergies/Home Medications Allergies/Adverse Reactions: Allergies Allergy/AdvReac Type Severity Reaction Status Date / Time No Known Allergies Allergy Verified 06/03/18 10:26 Home Medications: Home Medications Aspirin TAB* [Aspirin 325 MG TAB*] 325 mg PO DAILY 06/03/18 [History Confirmed 06/03/18] PMH/Surg Hx/FS Hx/Imm Hx Previously Healthy: No Endocrine/Hematology History: Denies: Hx Diabetes, Hx Thyroid Disease Cardiovascular History: Reports: Hx Myocardial Infarction Denies: Hx Congestive Heart Failure, Hx Hypertension Respiratory History: Denies: Hx Asthma, Hx Chronic Obstructive Pulmonary Disease (COPD) GI History: Reports: Hx Gastroesophageal Reflux Disease, Other GI Disorders - Chronic constipation Denies: Hx Ulcer History: Denies: Hx Dialysis, Hx Renal Disease Musculoskeletal History: Reports: Hx Arthritis Sensory History: Denies: Hx Contacts or Glasses, Hx Legally Blind, Hx Deafness, Hx Hearing Aid Opthamlomology History: Denies: Hx Contacts or Glasses, Hx Legally Blind Neurological History: Reports: Other Neuro Impairments/Disorders - Schizophrenia Psychiatric History: Reports: Hx Anxiety, Hx Inpatient Treatment, Hx Community Mental Health Tx, Hx Schizophrenia Denies: Hx Eating Disorder, Hx Depression, Hx Panic Disorder, Hx Post Traumatic Stress Disorder, Hx Suicide Attempt, Hx of Violent Episodes Against Others, Hx Substance Abuse - Surgical History Surgery Procedure, Year, and Place: n/a Infectious Disease History: Denies: Hx Clostridium Difficile, Hx Hepatitis, Hx Human Immunodeficiency Virus (HIV), Hx of Known/Suspected MRSA, Hx Shingles, Hx Tuberculosis, Hx Known/ Suspected VRE, Hx Known/Suspected VRSA, History Other Infectious Disease - Family History Known Family History: Positive: Other - breast cancer Negative: Diabetes - Social History Alcohol Use: None Hx Substance Use: No Substance Use Type: Reports: None Hx Tobacco Use: No Smoking Status (MU): Never Smoked Tobacco Amount Used/How Often: pt has not used any tobacco products in the last 30 days. Have You Smoked in the Last Year: No Review of Systems Negative: Blurred Vision Negative: Chest Pain Negative: Shortness Of Breath Positive: Nausea. Negative: Abdominal Pain, Vomiting Negative: dysuria Negative: Edema Negative: Headache All Other Systems Reviewed And Are Negative: Yes Physical Exam - Summary Physical Exam Summary: VITAL SIGNS: Reviewed. GENERAL: Patient is an elderly, fragile female who is lying comfortable in the stretcher. Patient is not in any acute respiratory distress. She is having involuntary tremors. HEAD AND FACE: No signs of trauma. No ecchymosis, hematomas or skull depressions. No sinus tenderness. EYES: PERRLA, EOMI x 2, No injected conjunctiva, no nystagmus. EARS: Hearing grossly intact. Ear canals and tympanic membranes are within normal limits. MOUTH: Oropharynx within normal limits. NECK: Supple, trachea is midline, no adenopathy, no JVD, no carotid bruit, no c- spine tenderness, neck with full ROM. CHEST: Symmetric, no tenderness at palpation LUNGS: Clear to auscultation bilaterally. No wheezing or crackles. CVS: Regular rate and rhythm, S1 and S2 present, no murmurs or gallops appreciated. ABDOMEN: Soft, non-tender. No signs of distention. No rebound no guarding, and no masses palpated. Bowel sounds are normal. EXTREMITIES: FROM in all major joints, no edema, no cyanosis or clubbing. NEURO: Alert and oriented x 3. No acute neurological deficits. Speech is normal and follows commands. SKIN: Dry and warm Triage Information Reviewed: Yes Vital Signs Reviewed: Yes Diagnostics - Laboratory Result Diagrams: 06/03/18 11:26 06/03/18 11:26 Lab Statement: Any lab studies that have been ordered have been reviewed, and results considered in the medical decision making process. - EKG 1123 Cardiac Rate: NL - 61 BPM EKG Rhythm: Sinus Rhythm EKG Interpretation: No ST elevations Re-Evaluation - Re-Evaluation First Eval Re-Evaluation Time: 12:35 Comment: patient feels better and would like to go home Complex Multi-Symp Course/Dx Assessment/Plan: This patient is a 73-year-old female who presents to the emergency department with chief complaint of having nausea without vomiting. The patient has past medical history significant for schizophrenia. Patient denies any chest pain or palpitations. Patient denies any abdominal pain diarrhea or constipation. She doesnt complain of any urinary symptoms. EKG shows a normal sinus rhythm without any ST elevations. Patient's blood work without any significant abnormality. Urinalysis is negative for UTI. Patient declines the x-ray of the abdomen to rule out constipation versus obstruction. However obstruction is in the low suspicion since the patient does not have any pain and the nausea has subsided with and Zofran and IV fluids. At this point the patient reports that she wants to go home since she feels better. The patient was given a PO challenge and she did not experience any nausea vomiting after the PO challenge. I discussed all the findings and test results with the patient. Patient was instructed to return to the emergency room immediately if any of the symptoms return or worsens. Plan of care was discussed with the patient and understands and agrees. All questions were answered at patient satisfaction. There were no further complaints or concerns. Lung exam before discharge: CTA B/L. Good air exchange. No wheezing or crackles heard. CVS: S1 and S2 present. No murmurs appreciated. Patient is alert and oriented x 3. Patient is hemodynamically stable. Patient will be discharged home with follow up PCP in the next 2-3 days - Diagnoses Differential Diagnoses/HQI/PQRI: Other - Nausea and vomiting, gastritis, gastroenteritis, constipation, SBO Provider Diagnoses: Nausea Discharge - Sign-Out/Discharge Documenting (check all that apply): Patient Departure - Discharge - Discharge Plan Condition: Stable Disposition: HOME Prescriptions: Ondansetron ODT TAB* [Zofran 4 MG Odt TAB*] 4 mg PO SEE INSTRUCTIONS PRN #10 tab PRN Reason: Nausea Patient Education Materials: Acute Nausea and Vomiting (ED) Referrals: Aron Arroyo MD [Primary Care Provider] - 2 Days Additional Instructions: Follow up with your primary care provider in 2 days. RETURN TO THE EMERGENCY DEPARTMENT FOR NEW OR WORSENING SYMPTOMS. - Billing Disposition and Condition Condition: STABLE Disposition: Home - Attestation Statements Document Initiated by Scribe: Yes Documenting Scribe: Kelly Burnett Provider For Whom Scribe is Documenting (Include Credential): Chase Hannon MD Scribe Attestation: I, Kelly Burnett, scribed for Chase Hannon MD on 06/04/18 at 1033. Scribe Documentation Reviewed: Yes Provider Attestation: The documentation as recorded by the scribeKelly accurately reflects the service I personally performed and the decisions made by me, Chase Hannon MD
[2018-06-03] MEDS ORDERED: NS 0.9% 1000 ML* 1,000 ML IV ONE (10:34)
[2018-06-03] MEDS ORDERED: Ondansetron INJ* 2 MG/ML VIAL IV ONE (10:34)
[2018-06-03 11:18] LABS: Urine Appearance Clear; Urine Blood 1+ (Negative); Urine Color Yellow; Urine Ketones Negative (Negative); Urine Protein Negative (Negative); Urine Red Blood Cell 2+(6-10/hpf) (Absent); Urine Specific Gravity 1.011 (1.010-1.030); Urine Urobilinogen Negative (Negative); Urine White Blood Cell Trace(0-5/hpf) (Absent)
[2018-06-03 11:41] LABS: ABS Basophils 0.1 10^3/ul (0-0.2); ABS Eosinophils 0.1 10^3/ul (0-0.6); ABS Lymphocytes 1.5 10^3/ul (1.0-4.8); ABS Monocytes 0.9 10^3/ul (0-0.8); ABS Neutrophils 5.6 10^3/ul (1.5-7.7); ABS Nucleated RBC 0 10^3/ul; Eosinophil % 0.7 % (0-6); Hematocrit 36 % (35-47); Lymphocyte % 18.5 % (25-47); Mean Corpuscular HGB Conc 34 g/dl (31-36); Mean Corpuscular Hemoglobin 30 pg (27-31); Mean Corpuscular Volume 89 fL (80-97); Mean Platelet Volume 7.2 um3 (7.4-10.4); Nucleated Red Blood Cells % 0; Platelet Count 319 10^3/ul (150-450); Red Cell Distribution Width 15 % (10.5-15); White Blood Count 8.2 10^3/ul (3.5-10.8)
[2018-06-03 12:00] LABS: EGFR Non-African American 94.9 (>60)
[2018-06-03 13:13] VITALS: BP 125/78
== END 2018-06-03 13:11 | disposition home or self-care (01) ==
LOC: ED 10:02
DX: R11.0 Nausea (principal)
CPT/HCPCS: 36415; 80053; 81003; 81015; 83605; 83690; 83735; 85025; 86140; 87086; 93005; 96361; 96374; 99283; J2405

== ENCOUNTER 2019-01-04 15:58 | Emergency (ER) | payer MEDICARE, MEDICAID ==
--- NOTE | 2019-01-04 16:24 | ED ---
Complex/Multi-Sys Presentation - HPI Summary HPI Summary: 73 year old F presenting to [facility] complains of rectal pain since 6 months ago and upper right arm pain since one year ago. The patient rates the pain 8/10 in severity. Symptoms aggravated by nothing. Symptoms alleviated by nothing. Patient denies trauma to her behind or her right arm. Patient denies chest pain , abdominal pain. She denies bloody stools, dark stools. Patient lives in assisted housing. Per patient's counselor, patient has hx schizophrenia and is non compliant with her schizophrenia medication and non compliant with her physician appointments. - History Of Current Complaint Chief Complaint: EDGeneral Time Seen by Provider: 01/04/19 16:12 Hx Obtained From: Patient, Other: - patient's counselor Onset/Duration: Lasting Weeks - 6-12 months, Still Present Timing: Constant Severity Currently: Severe Aggravating Factor(s): Nothing Alleviating Factor(s): Nothing Associated Signs And Symptoms: Positive: Other - NEGATIVE: chest pain, abdominal pain, bloody stools, dark stools - Allergies/Home Medications Allergies/Adverse Reactions: Allergies Allergy/AdvReac Type Severity Reaction Status Date / Time No Known Allergies Allergy Verified 01/04/19 16:08 PMH/Surg Hx/FS Hx/Imm Hx Previously Healthy: No Endocrine/Hematology History: Denies: Hx Diabetes, Hx Thyroid Disease Cardiovascular History: Reports: Hx Myocardial Infarction Denies: Hx Congestive Heart Failure, Hx Hypertension Respiratory History: Denies: Hx Asthma, Hx Chronic Obstructive Pulmonary Disease (COPD) GI History: Reports: Hx Gastroesophageal Reflux Disease, Other GI Disorders - Chronic constipation Denies: Hx Ulcer History: Denies: Hx Dialysis, Hx Renal Disease Musculoskeletal History: Reports: Hx Arthritis Sensory History: Denies: Hx Contacts or Glasses, Hx Legally Blind, Hx Deafness, Hx Hearing Aid Opthamlomology History: Denies: Hx Contacts or Glasses, Hx Legally Blind Neurological History: Reports: Other Neuro Impairments/Disorders - Schizophrenia Psychiatric History: Reports: Hx Anxiety, Hx Inpatient Treatment, Hx Community Mental Health Tx, Hx Schizophrenia Denies: Hx Eating Disorder, Hx Depression, Hx Panic Disorder, Hx Post Traumatic Stress Disorder, Hx Suicide Attempt, Hx of Violent Episodes Against Others, Hx Substance Abuse - Surgical History Surgery Procedure, Year, and Place: n/a Infectious Disease History: No Infectious Disease History: Denies: Hx Clostridium Difficile, Hx Hepatitis, Hx Human Immunodeficiency Virus (HIV), Hx of Known/Suspected MRSA, Hx Shingles, Hx Tuberculosis, Hx Known/ Suspected VRE, Hx Known/Suspected VRSA, History Other Infectious Disease, Traveled Outside the [place] in Last 30 Days - Family History Known Family History: Positive: Other - breast cancer Negative: Diabetes - Social History Alcohol Use: None Hx Substance Use: No Substance Use Type: Reports: None Hx Tobacco Use: No Smoking Status (MU): Never Smoked Tobacco Have You Smoked in the Last Year: No Review of Systems Negative: Chest Pain Gastrointestinal: Negative - bloody stools, dark stools Positive: Other - rectal pain. Negative: Abdominal Pain Positive: Other - upper right arm pain All Other Systems Reviewed And Are Negative: Yes Physical Exam - Summary Physical Exam Summary: Appearance: Well appearing, no pain distress Skin: warm, dry, reflects adequate perfusion Head/face: normal Eyes: EOMI, JULIANA ENT: normal Neck: supple, non-tender Respiratory: CTA, breath sounds present Cardiovascular: RRR, pulses symmetrical Abdomen: non-tender, soft Musculoskeletal: tenderness of right arm, no neurological deficits Neuro: normal, sensory motor intact, A&Ox3 Rectal exam chaperoned by nurse Dimple: tenderness upon rectal examination Triage Information Reviewed: Yes Vital Signs On Initial Exam: Initial Vitals Temp Pulse Resp BP Pulse Ox 98.2 F 71 18 140/98 98 01/04/19 16:03 01/04/19 16:03 01/04/19 16:03 01/04/19 16:03 01/04/19 16:03 Vital Signs Reviewed: Yes Diagnostics - Vital Signs Vital Signs Temp Pulse Resp BP Pulse Ox 01/04/19 16:03 98.2 F 71 18 140/98 98 - Laboratory Result Diagrams: 01/04/19 16:26 01/04/19 16:26 Lab Statement: Any lab studies that have been ordered have been reviewed, and results considered in the medical decision making process. - Radiology Arm Radiology Interpretation Completed By: Radiologist Summary of Radiographic Findings: OSTEOPENIA. OSTEOARTHRITIS. NO ACUTE OSSEOUS INJURY. THE DEGREE OF OSTEOPENIA MAY MAKE A NONDISPLACED FRACTURE. RADIOGRAPHICALLY OCCULT. IF SYMPTOMS PERSIST, RECOMMEND REPEAT IMAGING. ED physician has reviewed this report. - CT Abd/Pel CT Interpretation Completed By: Radiologist Summary of CT Findings: 1. Mild rectal wall thickening but no abscess. 2. 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 Cardiac apex and aorta are located on the left, but the heart is incompletely assessed. 3. Horseshoe kidney. No mass or hydronephrosis. 4. Suboptimal visualization of pancreas due to anatomic distortion, motion and lack of oral contrast. 5. Fibroid uterus. ED physician has reviewed this report. Re-Evaluation - Re-Evaluation First Eval Re-Evaluation Time: 20:19 Comment: patient feels better and is agreeable to discharge Complex Multi-Symp Course/Dx Course Of Treatment: 73 year old F presenting to [facility] complains of rectal pain since 6 months ago and upper right arm pain since one year ago. Bloodwork obtained. Arm x-ray showed OSTEOPENIA. OSTEOARTHRITIS. NO ACUTE OSSEOUS INJURY. THE DEGREE OF OSTEOPENIA MAY MAKE A NONDISPLACED FRACTURE. CT Abd/Pel shows 1. Mild rectal wall thickening but no abscess. 2. 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 Cardiac apex and aorta are located on the left, but the heart is incompletely assessed. 3. Horseshoe kidney. No mass or hydronephrosis. 4. Suboptimal visualization of pancreas due to anatomic distortion, motion and lack of oral contrast. 5. Fibroid uterus. RADIOGRAPHICALLY OCCULT. In ED course, patient was giving IV fluids. Patient feels better. Patient will be discharged home with prescription for Augmentin and Motrin and with instructions to follow up with orthopedics for arm pain and surgery for rectal pain in 3 days. Patient was instructed to return to ED for new or worsening symptoms. Patient understands and is agreeable to discharge plan. - Diagnoses Differential Diagnoses/HQI/PQRI: Other - rectal abscess Provider Diagnoses: Rectal pain, Rectal inflammation Discharge - Sign-Out/Discharge Documenting (check all that apply): Patient Departure - Discharge Patient Received Moderate/Deep Sedation with Procedure: No - Discharge Plan Condition: Stable Disposition: HOME Prescriptions: Amoxicillin/Clavulanate TAB* [Augmentin TAB 875*] 875 mg PO BID #20 tab Ibuprofen TAB* [Motrin TAB* 400 MG] 400 mg PO Q6H PRN #15 tab MDD 3 PRN Reason: Pain Patient Education Materials: Rectal Pain (ED) Referrals: Trip Aguilera MD [Medical Doctor] - 3 Days Bridget Bedoya MD [Medical Doctor] - 3 Days Additional Instructions: Follow up with Dr. Aguilera, surgery, in 3 days for consult on your rectal pain. Follow up with Dr. Bedoya, orthopedics, in 3 days for consult on your arm pain. RETURN TO EMERGENCY DEPARTMENT FOR NEW OR WORSENING SYMPTOMS. - Billing Disposition and Condition Condition: STABLE Disposition: Home - Attestation Statements Document Initiated by Scribe: Yes Documenting Scribe: Kelly Burnett Provider For Whom Colleen is Documenting (Include Credential): Archie Stewart MD Scribe Attestation: Kelly Marcelino, scribed for Archie Stewart MD on 01/04/19 at 2021. Scribe Documentation Reviewed: Yes Provider Attestation: The documentation as recorded by the Kelly brewster accurately reflects the service I personally performed and the decisions made by Archie montes MD Status of Scribe Document: Viewed
[2019-01-04] MEDS ORDERED: NS 0.9% 1000 ML** 1,000 ML IV ONE (16:26)
[2019-01-04 16:52] LABS: ABS Basophils 0.1 10^3/ul (0-0.2); ABS Eosinophils 0.1 10^3/ul (0-0.6); ABS Lymphocytes 2.6 10^3/ul (1.0-4.8); ABS Monocytes 1.1 10^3/ul (0-0.8); ABS Neutrophils 6.4 10^3/ul (1.5-7.7); ABS Nucleated RBC 0 10^3/ul; Eosinophil % 1.3 %; Hematocrit 33 % (33-41); Lymphocyte % 25.6 %; Mean Corpuscular HGB Conc 33 g/dL (31-36); Mean Corpuscular Hemoglobin 30 pg (27-31); Mean Corpuscular Volume 89 fL (80-97); Mean Platelet Volume 7.7 fL (7.4-10.4); Nucleated Red Blood Cells % 0; Platelet Count 327 10^3/uL (150-450); Red Blood Count 3.71 10^6 /uL (3.70-4.87); Red Cell Distribution Width 15 % (10.5-15); White Blood Count 10.3 10^3/uL (3.5-10.8)
[2019-01-04 17:01] LABS: Activated Partial Thrombo Time 31.5 seconds (26.0-36.3); INR 1.06 (0.82-1.09)
[2019-01-04 17:06] LABS: Albumin 3.9 g/dL (3.2-5.2); Albumin/Globulin Ratio 1.3 (1-3); BUN/Creatinine Ratio 26.5 (8-20); Calcium 9.1 mg/dL (8.6-10.3); EGFR African American 103.2 (>60); EGFR Non-African American 85.3 (>60); Globulin 2.9 g/dL (2-4); Potassium 3.8 mmol/L (3.5-5.0); Total Bilirubin 0.3 mg/dL (0.2-1.0); Total Protein 6.8 g/dL (6.4-8.9)
[2019-01-04] MEDS ORDERED: Iohexol 300* (CONTRAST) 10 ML SDV IV ONE (17:30)
[2019-01-04] MEDS ORDERED: Amoxicillin/Clavulanate TAB* 875 MG PO ONE (20:15)
[2019-01-04] MEDS ORDERED: Ibuprofen TAB* 600 MG PO ONE (20:18)
[2019-01-04 20:45] VITALS: BP 125/78
== END 2019-01-04 20:45 | disposition home or self-care (01) ==
LOC: ED 15:58
DX: K62.89 Other specified diseases of anus and rectum (principal); Q89.3 Situs inversus; Q63.1 Lobulated, fused and horseshoe kidney; D25.9 Leiomyoma of uterus, unspecified; M85.80 Other specified disorders of bone density and structure, unspecified site; M19.90 Unspecified osteoarthritis, unspecified site; I25.2 Old myocardial infarction; K21.9 Gastro-esophageal reflux disease without esophagitis; F41.9 Anxiety disorder, unspecified
CPT/HCPCS: 36415; 74177; 80053; 82272; 83605; 84484; 85025; 85610; 85730; 96360; 96361; 99283; A9270-GY; Q9967

== ENCOUNTER 2019-05-11 18:51 | Emergency (ER) | payer MEDICARE, MEDICAID ==
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
[2019-05-11 21:10] VITALS: BP 143/76
== END 2019-05-11 21:09 | disposition home or self-care (01) ==
LOC: ED 18:51
DX: F20.9 Schizophrenia, unspecified (principal); I25.2 Old myocardial infarction; K21.9 Gastro-esophageal reflux disease without esophagitis; F41.9 Anxiety disorder, unspecified; Z87.891 Personal history of nicotine dependence; Z79.82 Long term (current) use of aspirin; Z79.899 Other long term (current) drug therapy
CPT/HCPCS: 99283

== ENCOUNTER 2019-05-30 14:59 | Emergency (ER) | payer MEDICARE, MEDICAID ==
--- NOTE | 2019-05-30 17:07 | ED ---
Lower Extremity - HPI Summary HPI Summary: Patient states she can't control her legs for 3 days. Denies pain or trauma. Denies prior history of same. Patient states she is able to walk and is very unspecific in the way she describes that she can't control her legs. Patient has history of schizoaffective disorder, states she stopped her Geodon a few days ago. Denies any other pain, injury or symptoms. Patient walking in the ED. - History of Current Complaint Chief Complaint: EDExtremityLower Stated Complaint: DIFFICULTY WALKING PER PT Time Seen by Provider: 05/30/19 16:50 Hx Obtained From: Patient Mechanism Of Injury: Unknown Onset/Duration: Days Severity Currently: None Pain Intensity: 0 Pain Scale Used: 0-10 Numeric Timing: Constant Associated Signs And Symptoms: Positive: Negative Aggravating Factor(s): Other - Allergies/Home Medications Allergies/Adverse Reactions: Allergies Allergy/AdvReac Type Severity Reaction Status Date / Time No Known Allergies Allergy Verified 05/31/19 15:16 Home Medications: Home Medications Naproxen [Naproxen 375 mg tab] 375 mg PO BID PRN 05/30/19 [History Confirmed ] PMH/Surg Hx/FS Hx/Imm Hx Endocrine/Hematology History: Denies: Hx Diabetes, Hx Thyroid Disease Cardiovascular History: Reports: Hx Myocardial Infarction Denies: Hx Congestive Heart Failure, Hx Hypertension Respiratory History: Denies: Hx Asthma, Hx Chronic Obstructive Pulmonary Disease (COPD) GI History: Reports: Hx Gastroesophageal Reflux Disease, Other GI Disorders - Chronic constipation Denies: Hx Ulcer History: Denies: Hx Dialysis, Hx Renal Disease Musculoskeletal History: Reports: Hx Arthritis Sensory History: Denies: Hx Contacts or Glasses, Hx Legally Blind, Hx Deafness, Hx Hearing Aid Opthamlomology History: Denies: Hx Contacts or Glasses, Hx Legally Blind Neurological History: Reports: Other Neuro Impairments/Disorders - Schizophrenia Psychiatric History: Reports: Hx Anxiety, Hx Inpatient Treatment, Hx Community Mental Health Tx, Hx Schizophrenia Denies: Hx Eating Disorder, Hx Depression, Hx Panic Disorder, Hx Post Traumatic Stress Disorder, Hx Suicide Attempt, Hx of Violent Episodes Against Others, Hx Substance Abuse - Surgical History Surgery Procedure, Year, and Place: n/a Infectious Disease History: No Infectious Disease History: Denies: Hx Clostridium Difficile, Hx Hepatitis, Hx Human Immunodeficiency Virus (HIV), Hx of Known/Suspected MRSA, Hx Shingles, Hx Tuberculosis, Hx Known/ Suspected VRE, Hx Known/Suspected VRSA, History Other Infectious Disease, Traveled Outside the [place] in Last 30 Days - Family History Known Family History: Positive: Other - breast cancer Negative: Diabetes - Social History Alcohol Use: None Hx Substance Use: No Substance Use Type: Reports: None Hx Tobacco Use: No Smoking Status (MU): Never Smoked Tobacco Amount Used/How Often: pt has not used any tobacco products in the last 30 days. Have You Smoked in the Last Year: No Review of Systems Constitutional: Negative Eyes: Negative ENT: Negative Cardiovascular: Negative Respiratory: Negative Gastrointestinal: Negative Genitourinary: Negative Musculoskeletal: Other Skin: Negative Neurological: Negative Psychological: Normal All Other Systems Reviewed And Are Negative: Yes Physical Exam - Summary Physical Exam Summary: Neuro exam normal. Patient ambulated several times here in the ED. No pain with palpation of bilateral lower extremities. No peripheral edema. Patient's verbal expression mildly erratic. Otherwise alert and oriented, coherent. Triage Information Reviewed: Yes Vital Signs On Initial Exam: Initial Vitals Temp Pulse Resp BP Pulse Ox 97.8 F 67 14 135/87 97 05/30/19 15:03 05/30/19 15:03 05/30/19 15:03 05/30/19 15:03 05/30/19 15:03 Vital Signs Reviewed: Yes Appearance: Positive: Well-Appearing Skin: Positive: Warm Head/Face: Positive: Normal Head/Face Inspection Eyes: Positive: Normal ENT: Positive: Normal ENT inspection Neck: Positive: Supple Respiratory/Lung Sounds: Positive: Clear to Auscultation Cardiovascular: Positive: Normal Abdomen Description: Positive: Nontender Musculoskeletal: Positive: Normal Neurological: Positive: Normal Psychiatric: Positive: Normal AVPU Assessment: Alert - [place] Coma Scale Best Eye Response: 4 - Spontaneous Best Motor Response: 6 - Obeys Commands Best Verbal Response: 5 - Oriented Coma Scale Total: 15 Diagnostics - Vital Signs Vital Signs Temp Pulse Resp BP Pulse Ox 05/30/19 15:03 97.8 F 67 14 135/87 97 - Laboratory Lab Statement: Any lab studies that have been ordered have been reviewed, and results considered in the medical decision making process. Lower Extremity Course/Dx - Course Course Of Treatment: Patient states she can't control her legs for 3 days. Denies pain or trauma. Denies prior history of same. Patient states she is able to walk and is very unspecific in the way she describes that she can't control her legs. Patient has history of schizoaffective disorder, states she stopped her Geodon a few days ago. Denies any other pain, injury or symptoms. Patient walking in the ED. Vital signs within normal limits. Patient ambulatory in the ED. No evidence of any abnormal gait or abnormal function of bilateral lower extremities. - Diagnoses Provider Diagnoses: Weakness Discharge ED - Sign-Out/Discharge Documenting (check all that apply): Patient Departure Patient Received Moderate/Deep Sedation with Procedure: No - Discharge Plan Condition: Stable Disposition: HOME Patient Education Materials: Weakness (ED) Referrals: Aron Arroyo MD [Primary Care Provider] - Additional Instructions: Follow-up with your primary care doctor for further evaluation of weakness and bilateral legs and for resuming your Geodon prescription. - Billing Disposition and Condition Condition: STABLE Disposition: Home - Attestation Statements Provider Attestation: I was available for consultation for this patient. I did not evaluate the patient, or participate in any medical decision making or disposition decisions unless I am specifically named in the chart as having consulted on the patient. If I have consulted on the patient, please see my own ED note on the patient encounter. Angélica Delgadillo MD
[2019-05-30 17:51] VITALS: BP 00/00
== END 2019-05-30 17:48 | disposition home or self-care (01) ==
LOC: ED 14:59
DX: R53.1 Weakness (principal); Z79.899 Other long term (current) drug therapy; I25.2 Old myocardial infarction; K21.9 Gastro-esophageal reflux disease without esophagitis; F41.9 Anxiety disorder, unspecified
CPT/HCPCS: 99282

== ENCOUNTER 2019-05-31 15:10 | Inpatient (IN) | payer MEDICARE, MEDICAID ==
[2019-05-31 16:18] LABS: ABS Basophils 0.1 10^3/ul (0-0.2); ABS Eosinophils 0.1 10^3/ul (0-0.6); ABS Lymphocytes 2.2 10^3/ul (1.0-4.8); Eosinophil % 1.4 %; Hematocrit 33 % (35-47); Hemoglobin 11.1 g/dL (12.0-16.0); Lymphocyte % 23.8 %; Mean Corpuscular HGB Conc 34 g/dL (31-36); Mean Corpuscular Hemoglobin 30 pg (27-31); Mean Corpuscular Volume 88 fL (80-97); Mean Platelet Volume 7.8 fL (7.4-10.4); Platelet Count 307 10^3/uL (150-450); Red Blood Count 3.76 10^6 /uL (3.70-4.87); Red Cell Distribution Width 15 % (10-15); White Blood Count 9.4 10^3/uL (3.5-10.8)
--- NOTE | 2019-05-31 16:21 | ED ---
Psychiatric Complaint - HPI Summary HPI Summary: 74-year-old female with a history of schizophrenia on Geodon in the past, send in by outpatient psychiatrist. Patient states she was sent in by his her psychiatrist as she refused her Geodon. Patient states she is unable her Geodon as she does not have any complaints. Patient denies SI/HI, auditory or visual hallucinations. Patient was recently seen for leg cramps, and discharged yesterday. Reporting mild right thigh cramps otherwise has no complaints. Patient is intermittently hostile. Allergies Allergy/AdvReac Type Severity Reaction Status Date / Time No Known Allergies Allergy Verified 05/31/19 15:16 Home Medications Medication Instructions Recorded Confirmed Type Ziprasidone CAP* [Geodon CAP*] 80 mg PO BEDTIME MDD 160 mg 01/06/18 05/31/19 History Aspirin TAB* [Aspirin 325 MG TAB*] 325 mg PO DAILY 06/03/18 05/31/19 History Ibuprofen TAB* [Motrin TAB* 400 MG] 400 mg PO Q6H PRN #15 tab MDD 3 01/04/19 Rx Naproxen [Naproxen 375 mg tab] 375 mg PO BID PRN 05/30/19 05/31/19 History - History Of Current Complaint Chief Complaint: EDMentalHealth Time Seen by Provider: 05/31/19 15:37 Hx Obtained From: Patient ?: No Onset/Duration: Gradual Onset Timing: Constant Severity Currently: Mild Character: Frustrated Aggravating Factor(s): Nothing Alleviating Factor(s): Nothing Associated Signs And Symptoms: Positive: Hostile. Negative: Hallucinating Has Suicidal: Denies: Thoughts, With A Plan, Demonstrates Gesture, Has Prior Attempt(s) Has Homicidal: Denies: Thoughts, With A Plan, Demonstrates Gesture, Has Prior Attempt(s) - Allergies/Home Medications Allergies/Adverse Reactions: Allergies Allergy/AdvReac Type Severity Reaction Status Date / Time No Known Allergies Allergy Verified 05/31/19 15:16 PMH/Surg Hx/FS Hx/Imm Hx Endocrine/Hematology History: Denies: Hx Diabetes, Hx Thyroid Disease Cardiovascular History: Reports: Hx Myocardial Infarction Denies: Hx Congestive Heart Failure, Hx Hypertension Respiratory History: Denies: Hx Asthma, Hx Chronic Obstructive Pulmonary Disease (COPD) GI History: Reports: Hx Gastroesophageal Reflux Disease, Other GI Disorders - Chronic constipation Denies: Hx Ulcer History: Denies: Hx Dialysis, Hx Renal Disease Musculoskeletal History: Reports: Hx Arthritis Sensory History: Denies: Hx Contacts or Glasses, Hx Legally Blind, Hx Deafness, Hx Hearing Aid Opthamlomology History: Denies: Hx Contacts or Glasses, Hx Legally Blind Neurological History: Reports: Other Neuro Impairments/Disorders - Schizophrenia Psychiatric History: Reports: Hx Anxiety, Hx Inpatient Treatment, Hx Community Mental Health Tx, Hx Schizophrenia Denies: Hx Eating Disorder, Hx Depression, Hx Panic Disorder, Hx Post Traumatic Stress Disorder, Hx Suicide Attempt, Hx of Violent Episodes Against Others, Hx Substance Abuse - Surgical History Surgery Procedure, Year, and Place: n/a Infectious Disease History: No Infectious Disease History: Denies: Hx Clostridium Difficile, Hx Hepatitis, Hx Human Immunodeficiency Virus (HIV), Hx of Known/Suspected MRSA, Hx Shingles, Hx Tuberculosis, Hx Known/ Suspected VRE, Hx Known/Suspected VRSA, History Other Infectious Disease, Traveled Outside the [place] in Last 30 Days - Family History Known Family History: Positive: Other - breast cancer Negative: Diabetes - Social History Alcohol Use: None Hx Substance Use: No Substance Use Type: Reports: None Hx Tobacco Use: No Smoking Status (MU): Never Smoked Tobacco Amount Used/How Often: pt has not used any tobacco products in the last 30 days. Have You Smoked in the Last Year: No Review of Systems Positive: Myalgia Negative: Anxious, Depressed All Other Systems Reviewed And Are Negative: Yes Physical Exam - Summary Physical Exam Summary: Constitutional: Disheveled, no acute distress Skin: Warm, Dry HENT: Normocephalic; Atraumatic Eyes: Conjunctiva normal Neck: Musculoskeletal ROM normal neck. (-) JVD, (-) Stridor Cardio: Rhythm regular, rate normal, Heart sounds normal; Intact distal pulses; Radial pulses are 2+ and symmetric. (-) Murmur Pulmonary/Chest wall: Effort normal. (-) Respiratory distress, (-) Wheezes, (-) Rales Abd: Soft, (-) tenderness, (-) Distension, (-) Guarding, (-) Rebound Musculoskeletal: (-) Edema, no tenderness of right thigh. Lymph: (-) Cervical adenopathy Neuro: Alert, Oriented x3 Psych: Mood and affect Normal, mildly pressured speech Triage Information Reviewed: Yes Vital Signs On Initial Exam: Initial Vitals Temp Pulse Resp BP Pulse Ox 37.9 C 67 15 148/100 97 05/31/19 15:11 05/31/19 15:11 05/31/19 15:11 05/31/19 15:11 05/31/19 15:11 Vital Signs Reviewed: Yes Diagnostics - Vital Signs Vital Signs Temp Pulse Resp BP Pulse Ox 05/31/19 15:11 37.9 C 67 15 148/100 97 - Laboratory Lab Results: Lab Results 05/31/19 Range/Units 15:58 WBC 9.4 (3.5-10.8) 10^3/uL RBC 3.76 (3.70-4.87) 10^6 /uL Hgb 11.1 L (12.0-16.0) g/dL Hct 33 L (35-47) % MCV 88 (80-97) fL MCH 30 (27-31) pg MCHC 34 (31-36) g/dL RDW 15 (10-15) % Plt Count 307 (150-450) 10^3/uL MPV 7.8 (7.4-10.4) fL Neut % (Auto) 63.6 % Lymph % (Auto) 23.8 % Haines % (Auto) 10.1 % Eos % (Auto) 1.4 % Baso % (Auto) 1.1 % Absolute Neuts (auto) 6.0 (1.5-7.7) 10^3/ul Absolute Lymphs (auto) 2.2 (1.0-4.8) 10^3/ul Absolute Monos (auto) 1.0 H (0-0.8) 10^3/ul Absolute Eos (auto) 0.1 (0-0.6) 10^3/ul Absolute Basos (auto) 0.1 (0-0.2) 10^3/ul Absolute Nucleated RBC 0.0 10^3/ul Nucleated RBC % 0.0 Result Diagrams: 05/31/19 15:58 05/31/19 15:58 Lab Statement: Any lab studies that have been ordered have been reviewed, and results considered in the medical decision making process. Re-Evaluation - Re-Evaluation Second Eval Change: Improved - patient resting NAD. Repeat temp 98.4, no infectious signs. Awaiting MHE. Course/Dx - Course Course Of Treatment: 74 year old female with a history of schizophrenia presents for mental health evaluation. - labs, MHE ordered, given ativan for muscle spasms and agitation - Differential Dx/Clinical Impression Provider Diagnosis: Schizophrenia Discharge ED - Sign-Out/Discharge Documenting (check all that apply): Receiving Sign-Out - Patient will be a sign out upon shift change at [address] Dr. Thurston Signing out patient TO: Kurt Thurston Receiving patient FROM: Angélica Delgadillo Patient Received Moderate/Deep Sedation with Procedure: No - Discharge Plan Condition: Stable Referrals: Aron Arroyo MD [Primary Care Provider] - - Billing Disposition and Condition Condition: STABLE - Attestation Statements Document Initiated by Scribe: Yes Documenting Scribe: Geno Stock Provider For Whom Colleen is Documenting (Include Credential): Dr. Angélica Delgadillo MD Scribe Attestation: Geno Marcelino scribed for Dr. Angélica Delgadillo MD on 05/31/19 at 2142. Scribe Documentation Reviewed: Yes Provider Attestation: The documentation as recorded by the Geno brewster accurately reflects the service I personally performed and the decisions made by , Dr. Angélica Delgadillo MD Status of Scribe Document: Viewed
[2019-05-31] MEDS ORDERED: LORazepam TAB(*) 1 MG PO ONE (16:39)
[2019-05-31 16:42] LABS: ALT 14 U/L (7-52); AST 17 U/L (13-39); Albumin 3.8 g/dL (3.2-5.2); Albumin/Globulin Ratio 1.4 (1-3); Alkaline Phosphatase 62 U/L (34-104); Anion Gap 6 mmol/L (2-11); BUN/Creatinine Ratio 32.5 (8-20); Blood Urea Nitrogen 25 mg/dL (6-24); CO2 Carbon Dioxide 27 mmol/L (22-32); Calcium 9.4 mg/dL (8.6-10.3); Chloride 109 mmol/L (101-111); EGFR African American 89.2 (>60); EGFR Non-African American 73.7 (>60); Globulin 2.8 g/dL (2-4); Glucose 144 mg/dL (70-100); Potassium 3.8 mmol/L (3.5-5.0); Sodium 142 mmol/L (135-145); Total Protein 6.6 g/dL (6.4-8.9)
[2019-05-31 16:45] LABS: TSH (Thyroid Stimulating Horm) 0.98 mcIU/mL (0.34-5.60)
[2019-05-31 16:51] LABS: Acetaminophen < 15 mcg/mL; Alcohol < 10 mg/dL (<10); Salicylate < 2.50 mg/dL (<30)
[2019-05-31] MEDS ORDERED: Acetaminophen TAB* 325 MG PO ONE (21:17)
--- NOTE | 2019-05-31 21:51 | ED ---
Progress - Progress Note Progress Note: Pt is a sign out from Dr. Delgadillo pending MHE and disposition. Psych evaluation has been completed. Pt will be admitted to [facility]. Re-Evaluation - Re-Evaluation Second Eval Change: Improved - patient resting NAD. Repeat temp 98.4, no infectious signs. Awaiting MHE. Course/Dx - Course Course Of Treatment: 74 year old female with a history of schizophrenia presents for mental health evaluation. - labs, MHE ordered, given ativan for muscle spasms and agitation. Pt is a sign out from Dr. Delgadillo pending MHE and disposition. Psych evaluation has been completed. Pt will be admitted to [facility]. - Diagnoses Provider Diagnoses: Schizophrenia Discharge ED - Sign-Out/Discharge Documenting (check all that apply): Patient Departure - admit , Receiving Sign- Out Receiving patient FROM: Angélica Delgadillo Patient Received Moderate/Deep Sedation with Procedure: No - Discharge Plan Condition: Stable Disposition: ADMITTED TO [facility] Referrals: Aron Arroyo MD [Primary Care Provider] - - Billing Disposition and Condition Condition: STABLE Disposition: Admitted to [facility] - Attestation Statements Document Initiated by Scribe: Yes Documenting Scribe: Ramu Mendoza Provider For Whom Scribe is Documenting (Include Credential): Kurt Thurston MD Scribe Attestation: Ramu Marcelino, scribed for Kurt Thurston MD on 06/01/19 at 0247. Scribe Documentation Reviewed: Yes Provider Attestation: The documentation as recorded by the scribeRamu accurately reflects the service I personally performed and the decisions made by wy, Kurt Thurston MD Status of Scribe Document: Viewed
[2019-06-01] MEDS ORDERED: Al Hydrox/Mg Hydrox/Simet LIQ* 30 ML UDC PO PRN (04:24)
[2019-06-01] MEDS ORDERED: Acetaminophen TAB* 325 MG PO PRN (04:24)
[2019-06-01] MEDS ORDERED: Naproxen TAB* 250 MG PO PRN ×2 (08:17→14:39)
[2019-06-01] MEDS ORDERED: chlorproMAZINE TAB* 100 MG PO PRN (08:18)
[2019-06-01] MEDS: Vitamin THERAPEUTIC TAB PO SCH (08:40)
[2019-06-01] MEDS ORDERED: LORazepam TAB(*) 0.5 MG PO PRN (12:05)
[2019-06-01] MEDS ORDERED: Ibuprofen TAB* 400 MG PO PRN (12:08)
--- NOTE | 2019-06-01 19:20 | HP ---
HISTORY AND PHYSICAL: DATE OF ADMISSION: 06/01/19 SUPERVISING PSYCHIATRIST: Oleg Baires MD.* (DICTATED BY FLOR WHITE NP) JUSTIFICATION FOR ADMISSION: The patient presented to the emergency department after an appointment with her outpatient psychiatrist due to paranoid ideation, inability to care for herself, and medication nonadherence. She presents as grossly disorganized and merits hospitalization for immediate safety and stabilization. HISTORY OF PRESENT ILLNESS: Emanuel has many pseudonyms and has gone by Emanuel Elkins, and she states that she wants to be called Cheryl today. She is well known to this unit and this community due to multiple admissions to this unit and treatment at [facility] for over a decade and . Today's presentation is similar to previous presentations in that she has stopped taking Geodon. She has been increasingly isolative and not caring for herself at the [facility]. She reports thoughts that the food is poisoned at the [facility]. She states that she has a funny thing in her mouth when she eats the food; she states it tastes like "cult trash." She also reports that she thinks that somebody put something in her TV and she sees an object in the corner of her screen every time she looks at it. She is increasingly agitated while discussing this. She states that they also took away channel 6, the conflict was resolved, and channel 6 returned. She reports a decrease in weight; she states that she has not been eating. The patient denies having a diagnosis of schizophrenia and reports that she was diagnosed with this in error. The patient is disheveled, malodorous, and incontinent. She is tremulous and states that she was going to go to a neurologist, but came here instead. She states that her feet will not work and they go backwards. She reports that nobody likes her at the [facility] and that she nobody likes her anywhere she goes. She states that she keeps to herself. She listens to Patrice Hernandez in her 's room during the day and sleeps in her own room at night. She denies auditory or visual hallucinations; however, she endorsed seeing what was likely hallucinations in regards to her television. She presents as irritable. She needed much prompting and assurance from staff in order to complete shower and hygiene activities. She is refusing to give a urine sample and is incontinent in her Depends. She is requesting a consult from physical therapy due to her change in gait. PAST PSYCHIATRIC HISTORY: As stated above, she has been hospitalized at [facility] at multiple times with similar presentations; most recent in January 2018. Prior to this, she was hospitalized here in March 2015, June 2011, October 2010, and August 2007. She has an established diagnosis of schizophrenia. The patient is currently prescribed ziprasidone 80 mg and has not been compliant for at least a week. Previous medications include olanzapine ; which caused weight gain, paliperidone, risperidone, and quetiapine. The patient denies a history of suicide attempts or self-injurious behavior. TRAUMA ABUSE HISTORY: The patient denies and has denied in the past. MEDICAL HISTORY: History of constipation, anal fissure which was healed, and hirsutism. She was prescribed Bactrim for UTI from the ED in April. Height 5 feet 5 inches, weight 123 pounds. LMP, not applicable; the patient is postmenopausal. SURGICAL HISTORY: Umbilical hernia repair in 2014. CURRENT MEDICATIONS: 1. Ziprasidone 80 mg p.o. at bedtime. 2. Naproxen 375 mg p.o. b.i.d. p.r.n. for pain. 3. Ibuprofen 400 mg p.o. q.6 hours p.r.n. for pain. 4. Aspirin 325 mg p.o. daily. ALLERGIES: No known drug allergies. FAMILY PSYCHIATRIC HISTORY: The patient denies history of psychiatric illness or suicides in the family. SOCIAL HISTORY: The patient was born and raised in [place], [place]. She grew up with both parents and a sister who is 2 years older and a brother who is 10 years younger. Her father was a dentist. She is historically educated up to 8th grade, but reports she is literate. She has not had any consistent work history. Her parents are . She is and her lives in the [facility] in a separate room. REVIEW OF SYSTEMS: Constitutional: Negative. The patient denies fever, chills , or fatigue. ENT: Negative. Cardiovascular: Negative. Denies chest pain or palpitations. Respiratory: Negative. Denies shortness of breath or cough. Genitourinary: Positive for incontinence. Musculoskeletal: Shuffling gait noted. Neurological: Bilateral tremors noted. PHYSICAL EXAMINATION GENERAL: The patient is disheveled and poorly nourished. VITAL SIGNS: T 98.9, P 61, respiration rate 16, O2 saturation 98%, BP 128/72. HEENT: Head and Face: Normal head and face inspection with facial hair noted. Eyes: Positive EOMI. PERRL. Conjunctivae clear. NECK: Supple. Full ROM. Trachea midline. RESPIRATORY: Lung sounds clear to auscultation. Breath sounds present. CARDIOVASCULAR: Heart RRR. Pulses are symmetrical in both upper and lower extremities. MUSCULOSKELETAL: Normal strength. ROM intact. NEUROLOGICAL: Normal sensory. Motor intact. Alert and oriented x3 with shuffling gait. Cerebellar function intact. SKIN: Warm and dry. Color reflects adequate perfusion. She has a healing scratch on her face. Denies to discuss this further. LABORATORY DATA: CBC shows an H and H of 11.1 and 33. Chemistry: BUN high, BUN to creatinine ratio high at 32.5, glucose 144. TSH normal at 0.98. Toxicology negative for salicylates, acetaminophen, and for alcohol. The patient is refusing to give urine sample at this time. MENTAL STATUS EXAM: The patient is a late-aged female with hirsutism , disheveled hair and clothing, poorly groomed, and malodorous. She is psychotically related with poor eye contact and appears to be a poor historian. Mood is described as "same as it always is" and she presents as irritable. Affect is restricted. Thought process is circumstantial with paranoid delusions and ideas of reference. She denies suicidal or homicidal ideation. She is alert and oriented x3. Insight and judgment are impaired. DIAGNOSES: 1. Schizophrenia, chronic. 2. Urinary tract infection. ASSESSMENT: Emanuel is a 74-year-old female known to this unit due to similar presentations as above. She lives at the [facility] and has been refusing the antipsychotic. She has been refusing meals due to paranoid delusions and she has not been caring for herself. She presents as malnourished and malodorous. She has refused to give urine specimen and we will treat empirically due to previous treatment with Bactrim. The patient presents with tremulous and extrapyramidal symptoms. This is likely due to stopping the antipsychotic. The patient requests to meet with physical therapy. We will consider a neurology consult if symptoms do not improve with reinstating antipsychotic therapy. PLAN: The patient is admitted to the adult behavioral services unit on involuntary status. Code status is full. She is placed on 15-minute checks for safety. She is encouraged to participate in supportive milieu and individual sessions with staff and psychoeducational groups. The patient is refusing antipsychotic at this time and we will discuss with her the use of paliperidone in the hopes that she will accept a long-acting injectable. As stated above, we will treat the UTI with macrodantin, even though she is refusing to give a urine sample, to prevent worsening disease. ESTIMATED LENGTH OF STAY: 5 to 7 days. Discharge plan will include outpatient providers. FLOR WHITE NP [id number]/CPS #: [id number]
[2019-06-01] MEDS: Paliperidone ER TAB* 3 MG TAB.ER PO SCH (20:43)
[2019-06-01] MEDS: Nitrofurantoin Macrocrystals* 50 MG CAP PO SCH ×2 (20:43→21:00)
[2019-06-01] MEDS ORDERED: Sulfamethox/Trimethoprim DS 800/160* TAB PO SCH (21:00)
[2019-06-02] MEDS: Aspirin TAB* 325 MG PO SCH (09:40)
[2019-06-02] MEDS: Nitrofurantoin Macrocrystals* 50 MG CAP PO SCH ×2 (09:40→20:50)
[2019-06-02] MEDS: Vitamin THERAPEUTIC TAB PO SCH (09:41)
[2019-06-02] MEDS: Paliperidone ER TAB* 3 MG TAB.ER PO SCH (20:50)
[2019-06-02] MEDS: Naproxen TAB* 250 MG PO PRN (23:27)
[2019-06-03] MEDS: Aspirin TAB* 325 MG PO SCH ×2 (07:33→11:27)
[2019-06-03] MEDS: Nitrofurantoin Macrocrystals* 50 MG CAP PO SCH (11:27)
[2019-06-03] MEDS: Vitamin THERAPEUTIC TAB PO SCH (11:27)
--- NOTE | 2019-06-03 16:26 | PN ---
Subjective - Subjective Date of Service: 06/03/19 Subjective: Remains disorganized in his thinking, he wants to get back on Geodon instead of prescribed Invega. He complains of unsteady gait (PT consult is pending). He asserts that he has been eating more and he contracts to shower tomorrow. Per staff, he took invega last evening but refused the prescribed Macrobid. Objective - General Observations Appearance: Malodorous Appears Stated Age: Yes Stature: Thin Posture: Other (See Comment) - slooped Eye Contact: Average Behavior/Activity: WNL - Interaction Observations Attitude Towards Examiner: Confused Stated Mood: Dysphoric Affect: Restricted Speech Pattern/Tone: Clear Thought Process: Disorganized, Circumstantial Perception: WNL Thought Content: WNL Hallucination Type: None Delusion Type: None - Cognitive Function Orientation: A&O x 4 Level of Consciousness: Awake, Alert Estimated Intelligence: Normal Ability to Make Reasonable Decisions: Moderately Impaired - Medication Compliance Cooperative with Inpatient Medication Regimen: Partial - Group Participation Participates in Group Activities: No Assessment - Assessment Merits Inpatient Hospitalization: For Ongoing Evaluation, Consolidate Improvements, For Discharge Planning Clinical Impression: Ongoing impairing psychotic symptoms, poorly compliant with self-care and prescribed meds. Plan - Plan Treatment Plan: Name: RA TATE Birthdate: 1945 [id number] Medications: Current Medications Acetaminophen (Tylenol Tab*) 650 mg PO Q4H PRN PRN Reason: PAIN or TEMP > 101 F Al Hydrox/Mg Hydrox/Simethicone (Maalox Plus*) 30 ml PO Q4H PRN PRN Reason: INDIGESTION Aspirin (Aspirin Tab*) 325 mg PO DAILY [facility] Last Admin: 06/03/19 11:27 Dose: Not Given Chlorpromazine HCl (Thorazine Tab*) 100 mg PO Q6H PRN PRN Reason: AGITATION Lorazepam (Ativan Tab(*)) 0.5 mg PO Q4H PRN PRN Reason: anxiety/agitation Multivitamins (Theragran Tab*) 1 tab PO DAILY [facility] Last Admin: 06/03/19 11:27 Dose: Not Given Naproxen (Naprosyn Tab*) 500 mg PO BID PRN PRN Reason: PAIN - MODERATE Last Admin: 06/02/19 23:27 Dose: 500 mg Nitrofurantoin Macrocrystals (Macrodantin*) 100 mg PO BID [facility] Stop: 06/08/19 20:59 Paliperidone (Invega Er Tab*) 3 mg PO BEDTIME [facility] Last Admin: 06/02/19 20:50 Dose: 3 mg - Discharge Plan Discharge Plan: Outpatient Follow Up Outpatient Program: [facility]
[2019-06-03] MEDS: Paliperidone ER TAB* 3 MG TAB.ER PO SCH (20:56)
[2019-06-03] MEDS: Nitrofurantoin Macrocrystals* 100 MG CAP PO SCH (21:02)
[2019-06-04] MEDS: Nitrofurantoin Macrocrystals* 100 MG CAP PO SCH ×2 (09:36→20:01)
[2019-06-04] MEDS: Vitamin THERAPEUTIC TAB PO SCH (09:36)
[2019-06-04] MEDS: Aspirin TAB* 325 MG PO SCH (09:38)
[2019-06-04] MEDS: Naproxen TAB* 250 MG PO PRN (12:33)
[2019-06-04] MEDS ORDERED: Propranolol TAB* 20 MG PO ONE (13:40)
--- NOTE | 2019-06-04 15:24 | PN ---
Subjective - Subjective Date of Service: 06/04/19 Service Type: 68304 Hosp care 15 min low complexity Subjective: Patient reports feeling worried about her legs and how they are making her walk backwards. She states this has been going on for approx one week. She appears to understand that stopping antipsychotic may have attributed to resurgence of EPS movements and agrees to continue with titration of paliperidone. She reports poor sleep, denies anxiety or hypomanic symptoms and states "I'm just not tired." Objective - General Observations Appearance: Well Groomed Stature: Thin Posture: Slumped Eye Contact: Avoidant Behavior/Activity: Other (See Comment) - hand tremor, more prevalent in R hand - Interaction Observations Attitude Towards Examiner: Cooperative Stated Mood: Euthymic Affect: Blunted Speech Pattern/Tone: Clear, Appropriate, Normal Volume Thought Process: Goal Directed, Impoverished Perception: WNL Thought Content: Paranoid Thought Process: Lethality: Paranoid Ideation Hallucination Type: Denies Delusion Type: Persecution - Cognitive Function Orientation: A&O x 4 Level of Consciousness: Alert Cognition: WNL Estimated Intelligence: Normal Insight: Difficulty Acknowledging Presence of Psyciatric Problems Judgment Within Normal Limits: No Ability to Make Reasonable Decisions: Serverely Impaired - Medication Compliance Cooperative with Inpatient Medication Regimen: Partial - Group Participation Participates in Group Activities: Partial Assessment - Assessment Merits Inpatient Hospitalization: For Immediate Safety, For Stabilization Inpatient DSM-V Dx: F20.0 Clinical Impression: 74yo wf with known history of schizophrenia and poor adherence to treatment. She lives in [facility], has been refusing medications and meals, citing being poisoned. She presented as severely malodorous and disheveled, pointing to inability to care for herself. She merits hospitalization for immediate safety and stabilization. Plan - Plan Treatment Plan: Name: RA TATE Birthdate: 1945 [id number] continue acute intensive psychiatric treatment. may decrease to q30min and allow staff pass. increase paliperidone to 9mg. trial propranolol for tremors. add mirtazapine for sleep and restless legs. Continued Medication Management: Start Medication Medications: Current Medications Acetaminophen (Tylenol Tab*) 650 mg PO Q4H PRN PRN Reason: PAIN or TEMP > 101 F Al Hydrox/Mg Hydrox/Simethicone (Maalox Plus*) 30 ml PO Q4H PRN PRN Reason: INDIGESTION Aspirin (Aspirin Tab*) 325 mg PO DAILY [facility] Last Admin: 06/04/19 09:38 Dose: Not Given Chlorpromazine HCl (Thorazine Tab*) 100 mg PO Q6H PRN PRN Reason: AGITATION Lorazepam (Ativan Tab(*)) 0.5 mg PO Q4H PRN PRN Reason: anxiety/agitation Multivitamins (Theragran Tab*) 1 tab PO DAILY [facility] Last Admin: 06/04/19 09:36 Dose: 1 tab Naproxen (Naprosyn Tab*) 500 mg PO BID PRN PRN Reason: PAIN - MODERATE Last Admin: 06/04/19 12:33 Dose: 500 mg Nitrofurantoin Macrocrystals (Macrodantin*) 100 mg PO BID [facility] Stop: 06/08/19 20:59 Last Admin: 06/04/19 09:36 Dose: 100 mg Paliperidone (Invega Er Tab*) 9 mg PO BEDTIME [facility] - Discharge Plan Discharge Plan: Inpatient Hospitalization
[2019-06-04] MEDS: Propranolol TAB* 20 MG PO SCH (20:02)
[2019-06-04] MEDS: Mirtazapine TAB* 15 MG PO SCH (20:03)
[2019-06-04] MEDS ORDERED: Paliperidone ER TAB* 9 MG TAB.ER PO SCH (21:00)
[2019-06-05] MEDS: Nitrofurantoin Macrocrystals* 100 MG CAP PO SCH ×2 (09:45→20:38)
[2019-06-05] MEDS: Propranolol TAB* 20 MG PO SCH (09:45)
[2019-06-05] MEDS: Vitamin THERAPEUTIC TAB PO SCH (09:49)
[2019-06-05] MEDS: Aspirin TAB* 325 MG PO SCH (09:49)
--- NOTE | 2019-06-05 10:12 | PN ---
Subjective - Subjective Date of Service: 06/05/19 Service Type: 25989 Hosp care 35 min high complexity Subjective: Patient reports leg weakness and falling backwards this morning. She denies pain or injury. She declined to work with PT this morning and utilized unit wheelchair to navigate about the unit today. At various points, she was noted to spontaneously walk about. Patient reports continued sensation that her feet are "walking backwards." She reports sleeping poorly due to a noisy roommate. She reports the food is good and does not endorse thoughts of it being poisoned. Objective - General Observations Appearance: Malodorous Appears Stated Age: Yes Stature: Thin Posture: Slumped, Other (See Comment) Eye Contact: Avoidant Behavior/Activity: Peculiar - Interaction Observations Attitude Towards Examiner: Cooperative Stated Mood: Irritable Affect: Blunted Speech Pattern/Tone: Clear, Appropriate, Normal Volume Thought Process: Circumstantial, Impoverished Perception: WNL Thought Content: Preoccupation/Ruminations Hallucination Type: Denies Delusion Type: Denies - Cognitive Function Orientation: A&O x 4 Level of Consciousness: Alert Cognition: WNL Estimated Intelligence: Normal Insight: Difficulty Acknowledging Presence of Psyciatric Problems Judgment Within Normal Limits: No Ability to Make Reasonable Decisions: Serverely Impaired - Medication Compliance Cooperative with Inpatient Medication Regimen: Yes - Group Participation Participates in Group Activities: Partial Assessment - Assessment Merits Inpatient Hospitalization: For Immediate Safety, For Stabilization Inpatient DSM-V Dx: F20.0 Clinical Impression: 74yo wf with known history of schizophrenia and poor adherence to treatment. She lives in [facility], has been refusing medications and meals, citing being poisoned. She presented as severely malodorous and disheveled, pointing to inability to care for herself. She merits hospitalization for immediate safety and stabilization. Plan - Plan Treatment Plan: Name: RA TATE Birthdate: 1945 [id number] continue acute intensive psychiatric treatment. continue 15min obs, may allow staff pass. decrease paliperidone to 6mg qhs. DC propranolol. add benztropine 1mg BID. Continued Medication Management: Start Medication Medications: Current Medications Acetaminophen (Tylenol Tab*) 650 mg PO Q4H PRN PRN Reason: PAIN or TEMP > 101 F Al Hydrox/Mg Hydrox/Simethicone (Maalox Plus*) 30 ml PO Q4H PRN PRN Reason: INDIGESTION Aspirin (Aspirin Tab*) 325 mg PO DAILY [facility] Last Admin: 06/05/19 09:49 Dose: Not Given Benztropine Mesylate (Cogentin Tab*) 1 mg PO BID [facility] Chlorpromazine HCl (Thorazine Tab*) 100 mg PO Q6H PRN PRN Reason: AGITATION Lorazepam (Ativan Tab(*)) 0.5 mg PO Q4H PRN PRN Reason: anxiety/agitation Mirtazapine (Remeron Tab*) 7.5 mg PO BEDTIME [facility] Last Admin: 06/04/19 20:03 Dose: 7.5 mg Multivitamins (Theragran Tab*) 1 tab PO DAILY [facility] Last Admin: 06/05/19 09:49 Dose: Not Given Naproxen (Naprosyn Tab*) 500 mg PO BID PRN PRN Reason: PAIN - MODERATE Last Admin: 06/04/19 12:33 Dose: 500 mg Nitrofurantoin Macrocrystals (Macrodantin*) 100 mg PO BID [facility] Stop: 06/08/19 20:59 Last Admin: 06/05/19 09:45 Dose: 100 mg Paliperidone (Invega Er Tab*) 6 mg PO BEDTIME [facility] - Discharge Plan Discharge Plan: Inpatient Hospitalization
[2019-06-05] MEDS: Benztropine TAB* 1 MG PO SCH ×2 (10:32→20:38)
[2019-06-05] MEDS: Paliperidone ER TAB* 6 MG TAB.ER PO SCH (20:38)
[2019-06-05] MEDS: Mirtazapine TAB* 15 MG PO SCH (20:38)
[2019-06-05] MEDS: Naproxen TAB* 250 MG PO PRN (20:44)
[2019-06-05 22:00] LABS: Urine Appearance Cloudy; Urine Bacteria Absent (Absent); Urine Bilirubin Negative (Negative); Urine Blood 2+ (Negative); Urine Color Yellow; Urine Glucose Negative (Negative); Urine Ketones Negative (Negative); Urine Nitrite Negative (Negative); Urine Protein Negative (Negative); Urine Red Blood Cell 2+(6-10/hpf) (Absent); Urine Specific Gravity 1.025 (1.010-1.030); Urine Squamous Epithelial Cell Present (Absent); Urine Urobilinogen Negative (Negative); Urine White Blood Cell Trace(0-5/hpf) (Absent)
[2019-06-06 08:51] LABS: HDL Cholesterol 75.9 mg/dL
[2019-06-06] MEDS: Benztropine TAB* 1 MG PO SCH ×3 (10:07→21:33)
[2019-06-06] MEDS: Vitamin THERAPEUTIC TAB PO SCH (10:07)
[2019-06-06] MEDS: Nitrofurantoin Macrocrystals* 100 MG CAP PO SCH ×3 (10:07→21:33)
[2019-06-06] MEDS: Aspirin TAB* 325 MG PO SCH (10:07)
--- NOTE | 2019-06-06 14:50 | PN ---
Subjective - Subjective Date of Service: 06/06/19 Service Type: 24285 Hosp care 25 min moderate complexity Subjective: Patient submitted urine sample, awaiting micro results. She continues to c/o intermittent leg weakness and "walking backward." She denies pain, restlessness or involuntary movements. She states she thinks it is related to "cult" activity or something to do with Satan. Nursing assisted with ADLs as patient has limited bilat arm ROM. Patient noted to have severely matted hair with product and skin buildup. SW is making a referral to [facility] for ongoing PT and assistance with ADLs ongoing after discharge. Objective - General Observations Appearance: Well Groomed - with staff assistance Stature: Thin Posture: Other (See Comment) Eye Contact: Average Behavior/Activity: Slowed - Interaction Observations Attitude Towards Examiner: Cooperative, Anxious Stated Mood: Euthymic Affect: Blunted Speech Pattern/Tone: Clear, Appropriate, Normal Volume Thought Process: Circumstantial, Impoverished Perception: WNL Thought Content: Paranoid Thought Process: Lethality: Paranoid Ideation Hallucination Type: Denies Delusion Type: Persecution, Rastafarian - Cognitive Function Orientation: A&O x 4 Level of Consciousness: Alert Cognition: WNL Estimated Intelligence: Normal Insight: Difficulty Acknowledging Presence of Psyciatric Problems Judgment Within Normal Limits: No Ability to Make Reasonable Decisions: Serverely Impaired - Medication Compliance Cooperative with Inpatient Medication Regimen: Yes - Group Participation Participates in Group Activities: No Assessment - Assessment Merits Inpatient Hospitalization: For Immediate Safety, For Stabilization Inpatient DSM-V Dx: F20.0 Clinical Impression: 74yo wf with known history of schizophrenia and poor adherence to treatment. She lives in [facility], has been refusing medications and meals, citing being poisoned. She presented as severely malodorous and disheveled, pointing to inability to care for herself. She merits hospitalization for immediate safety and stabilization. Plan - Plan Treatment Plan: Name: RA TATE Birthdate: 1945 [id number] continue acute intensive psychiatric treatment. continue 15min obs, may allow staff pass. continue current medications. consider neurology consult Medications: Current Medications Acetaminophen (Tylenol Tab*) 650 mg PO Q4H PRN PRN Reason: PAIN or TEMP > 101 F Al Hydrox/Mg Hydrox/Simethicone (Maalox Plus*) 30 ml PO Q4H PRN PRN Reason: INDIGESTION Aspirin (Aspirin Tab*) 325 mg PO DAILY [facility] Last Admin: 06/06/19 10:07 Dose: Not Given Benztropine Mesylate (Cogentin Tab*) 1 mg PO BID [facility] Last Admin: 06/06/19 10:23 Dose: 1 mg Chlorpromazine HCl (Thorazine Tab*) 100 mg PO Q6H PRN PRN Reason: AGITATION Lorazepam (Ativan Tab(*)) 0.5 mg PO Q4H PRN PRN Reason: anxiety/agitation Mirtazapine (Remeron Tab*) 7.5 mg PO BEDTIME [facility] Last Admin: 06/05/19 20:38 Dose: 7.5 mg Multivitamins (Theragran Tab*) 1 tab PO DAILY [facility] Last Admin: 06/06/19 10:07 Dose: Not Given Naproxen (Naprosyn Tab*) 500 mg PO BID PRN PRN Reason: PAIN - MODERATE Last Admin: 06/05/19 20:44 Dose: 500 mg Nitrofurantoin Macrocrystals (Macrodantin*) 100 mg PO BID [facility] Stop: 06/08/19 20:59 Last Admin: 06/06/19 10:24 Dose: 100 mg Paliperidone (Invega Er Tab*) 6 mg PO BEDTIME [facility] Last Admin: 06/05/19 20:38 Dose: 6 mg - Discharge Plan Discharge Plan: Inpatient Hospitalization
[2019-06-06] MEDS: Mirtazapine TAB* 15 MG PO SCH (21:33)
[2019-06-06] MEDS: Paliperidone ER TAB* 6 MG TAB.ER PO SCH (21:34)
[2019-06-07] MEDS: Nitrofurantoin Macrocrystals* 100 MG CAP PO SCH ×2 (08:53→21:04)
[2019-06-07] MEDS: Benztropine TAB* 1 MG PO SCH (08:54)
[2019-06-07] MEDS: Vitamin THERAPEUTIC TAB PO SCH (08:56)
[2019-06-07] MEDS: Aspirin TAB* 325 MG PO SCH (08:56)
--- NOTE | 2019-06-07 14:53 | CONS ---
NEUROLOGY CONSULTATION: DATE OF CONSULT: 06/07/19 LOCATION: She is in an inpatient in mental health unit. REFERRING PROVIDER: Ashley Stoddard NP CHIEF COMPLAINT: Tremor, gait disorder, rule out Parkinson disease. HISTORY OF PRESENT ILLNESS: Emanuel Wilburn is a 74-year-old woman who was admitted on 06/01/19 with an exacerbation of her chronic schizophrenia. I was asked to see her because of gait disorder and tremor and signs of parkinsonism. The patient is a poor historian, but says that she has been walking backwards for an indeterminate length of time. She states it is "recently." She says she fell once at home, but did not get injured. When asked about tremor which is evident on exam, she said that has been going on for "about the same time." Her examination apparently showed signs of parkinsonism noted in the admission notes. I cannot find any other admission notes in the records indicating evidence of parkinsonism. She says she has never seen a neurologist before. She was on Geodon, but she stopped it on her own and says that that is when her walking backwards and tremor started. Again, it is really hard to get any kind of temporal sequence from her historically. PAST MEDICAL HISTORY: Mainly notable for chronic schizophrenia. She has been admitted multiple times. She has been noted to have medication noncompliance. She has a history of anal fissure, hirsutism, recurrent urinary tract infections. She has a history of constipation. MEDICATIONS: That she was supposed to be on as an outpatient included: 1. Geodon 80 mg p.o. q. day. 2. Naproxen as needed for pain. 3. Aspirin 325 mg p.o. q. day. ALLERGIES: According to computer records, she does not have any drug allergies. FAMILY HISTORY: She denies any family history of parkinsonism or tremor. REVIEW OF SYSTEMS: Notable for constipation. She says that she sleeps well. She says she does not have any hallucinations and does not recall any of her dreams. She is not aware if she talks or walks in her sleep. There is no history of head trauma. PHYSICAL EXAM: She is a disheveled, hirsute woman, who is otherwise quite cooperative. Most recent blood pressure was 142/75, temperature 97.2, pulse is at about 60 and seems pretty regular. Heart tones are normal. There are no murmurs. Neurological Exam: Eye movements are full. She has grade 3 hypomimia. Speech is soft, but clear and monotone. Palate and tongue appear normal. On motor exam, she has pretty normal strength, although some pain with testing about the right shoulder. There is no weakness proximally or distally. She has cogwheel rigidity in the upper extremities more than the lower extremities and more in the right arm than the left. It is accentuated by distraction maneuvers. She has a rest tremor in the right hand and lesser degree of a rest tremor in the left hand. Finger taps are slow and clumsy bilaterally, worse on the right. Foot taps are fairly normal. Gait is notable for some anteropulsion and decreased arm swing as well as accentuation of her right hand tremor. There is retropulsion on push- pull testing. LABORATORY DATA: From 05/31/19 notable for a CBC with hemoglobin of 11.1 and otherwise an unremarkable CBC. Chemistries from 05/31/19 are unremarkable other than a glucose of 144 and hemoglobin A1c of 6%. TSH on 05/31/19 was normal at 0.98. Toxicology screen on 05/31/19 was unremarkable. IMPRESSION AND PLAN: Impression is that of parkinsonism. She is clearly at high risk for drug-induced parkinsonism, but the asymmetry on her exam suggests a possibly of underlying idiopathic Parkinson disease. Treatment is problematic as dopaminergic agents could potentially aggravate her psychiatric disorder. Anticholinergic agents can be helpful particularly for the tremor. Currently, she is getting benztropine 1 mg twice per day on a scheduled basis. She is also prescribed chlorpromazine as needed for agitation which clearly could aggravate her current parkinsonism but it looks like she has not received any in the medical record. She is also currently on Invega 6 mg at bedtime. I will discuss my thoughts with her mental health provider here, who is currently not on the floor. One could obtain a dopamine transporter scan to help differentiate whether or not this is drug-induced parkinsonism or a neurodegenerative parkinsonian disorder with dopaminergic degeneration. I would not try levodopa therapy especially with her relatively recent exacerbation of psychiatric issues. [id number]/[facility] #: [id number] [facility]
--- NOTE | 2019-06-07 15:13 | PN ---
Subjective - Subjective Date of Service: 06/07/19 Service Type: 52284 Hosp care 25 min moderate complexity Subjective: Patient slept poorly last night. She is observed to walk about the unit without assist. She states she has intermittent difficulty due to her legs "walking backwards." She continues to endorse delusional belief of satan or a cult causing the phenomenon. Patient has been taking medications and compliant with meals. [employer]or spoke with neurologist, Dr Kwan, to discuss his findings. Patient is likely showing signs of parkison's and he is willing to continue seeing the patient in outpatient. Objective - General Observations Appearance: Well Groomed Stature: Thin Posture: Slumped Eye Contact: Average Behavior/Activity: WNL - Interaction Observations Attitude Towards Examiner: Cooperative Stated Mood: Euthymic Affect: Bright Speech Pattern/Tone: Clear, Appropriate, Normal Volume Thought Process: Coherent, Goal Directed Perception: WNL Thought Content: WNL Thought Process: Lethality: Paranoid Ideation Hallucination Type: Denies Delusion Type: Episcopal - Cognitive Function Orientation: A&O x 4 Level of Consciousness: Alert Cognition: WNL Estimated Intelligence: Normal Insight: Difficulty Acknowledging Presence of Psyciatric Problems Judgment Within Normal Limits: No Ability to Make Reasonable Decisions: Mildly Impaired - Medication Compliance Cooperative with Inpatient Medication Regimen: Yes - Group Participation Participates in Group Activities: Partial Assessment - Assessment Merits Inpatient Hospitalization: For Immediate Safety, For Stabilization Inpatient DSM-V Dx: F20.0 Clinical Impression: 74yo wf with known history of schizophrenia and poor adherence to treatment. She lives in [facility], has been refusing medications and meals, citing being poisoned. She presented as severely malodorous and disheveled, pointing to inability to care for herself. She is tolerating medications changes and stabilizing in this structured setting. She merits hospitalization for immediate safety and discharge planning. Plan - Plan Treatment Plan: Name: RA TATE Birthdate: 1945 [id number] continue acute intensive psychiatric treatment. continue 15min obs, may allow staff pass. increase benztropine to 2mg in am and 1mg qhs. continue other medications, as ordered. appreciate neurology consult. discharge to [facility] potentially 06/08/19. Continued Medication Management: Start Medication Medications: Current Medications Acetaminophen (Tylenol Tab*) 650 mg PO Q4H PRN PRN Reason: PAIN or TEMP > 101 F Al Hydrox/Mg Hydrox/Simethicone (Maalox Plus*) 30 ml PO Q4H PRN PRN Reason: INDIGESTION Aspirin (Aspirin Tab*) 325 mg PO DAILY [facility] Last Admin: 06/07/19 08:56 Dose: Not Given Benztropine Mesylate (Cogentin Tab*) 1 mg PO BID [facility] Last Admin: 06/07/19 08:54 Dose: 1 mg Chlorpromazine HCl (Thorazine Tab*) 100 mg PO Q6H PRN PRN Reason: AGITATION Lorazepam (Ativan Tab(*)) 0.5 mg PO Q4H PRN PRN Reason: anxiety/agitation Mirtazapine (Remeron Tab*) 7.5 mg PO BEDTIME [facility] Last Admin: 06/06/19 21:33 Dose: 7.5 mg Multivitamins (Theragran Tab*) 1 tab PO DAILY [facility] Last Admin: 06/07/19 08:56 Dose: Not Given Naproxen (Naprosyn Tab*) 500 mg PO BID PRN PRN Reason: PAIN - MODERATE Last Admin: 06/05/19 20:44 Dose: 500 mg Nitrofurantoin Macrocrystals (Macrodantin*) 100 mg PO BID [facility] Stop: 06/08/19 20:59 Last Admin: 06/07/19 08:53 Dose: 100 mg Paliperidone (Invega Er Tab*) 6 mg PO BEDTIME [facility] Last Admin: 06/06/19 21:34 Dose: 6 mg - Discharge Plan Discharge Plan: Inpatient Hospitalization
[2019-06-07] MEDS ORDERED: Benztropine TAB* 1 MG PO SCH (21:00)
[2019-06-07] MEDS: Mirtazapine TAB* 15 MG PO SCH (21:03)
[2019-06-07] MEDS: Paliperidone ER TAB* 6 MG TAB.ER PO SCH (21:04)
[2019-06-08] MEDS ORDERED: Benztropine TAB* 2 MG PO SCH (09:00)
[2019-06-08 09:26] VITALS: BP 139/83
[2019-06-08] MEDS: Nitrofurantoin Macrocrystals* 100 MG CAP PO SCH (09:53)
[2019-06-08] MEDS: Aspirin TAB* 325 MG PO SCH (09:53)
[2019-06-08] MEDS: Vitamin THERAPEUTIC TAB PO SCH (09:53)
--- NOTE | 2019-06-08 10:00 | DCNOTE ---
Subjective - Subjective Service Types: 08808 Hosp DC Day Mgmt simple under 30 min Discharge Date: 06/08/19 Subjective: Patient notified of recommendations from neurologist, including seeing Dr Kwan in his clinic. She continues to request to return home as soon as possible. She endorses fixed delusion of not having a mental illness and goes into great detail about her traumatic time in the womb. She states her life has been one harrowing event after another and that she is stuck between hell on earth and going to hell. She states her has taught her a prayer that helps and she cites the Lord's prayer. Patient has tolerated medication changes and presents at her baseline. Objective - General Observations Appearance: Well Groomed Stature: Thin Posture: Slumped Eye Contact: Average Behavior/Activity: WNL - Interaction Observations Attitude Towards Examiner: Cooperative Stated Mood: Euthymic Affect: Full Speech Pattern/Tone: Clear, Appropriate, Normal Volume Thought Process: Coherent, Goal Directed, Tangential Perception: WNL Thought Content: Paranoid Thought Process: Lethality: Paranoid Ideation Hallucination Type: Denies - appears to attend to internal stimuli, Auditory Delusion Type: Persecution, Grandeur - Cognitive Function Orientation: A&O x 4 Level of Consciousness: Alert Cognition: WNL Estimated Intelligence: Normal Insight: Difficulty Acknowledging Presence of Psyciatric Problems Judgment Within Normal Limits: No Ability to Make Reasonable Decisions: Mildly Impaired - Medication Compliance Cooperative with Inpatient Medication Regimen: Yes - Group Participation Participates in Group Activities: No DC Assessment - Assessment Clinical Impression: 74yo wf with known history of schizophrenia and poor adherence to treatment. She lives in [facility], has been refusing medications and meals, citing being poisoned. She presented as severely malodorous and disheveled, pointing to inability to care for herself. She is tolerating medications changes and stabilizing in this structured setting. Merits Inpatient Hospitalization: No Clear for Discharge: Adequate Clinical Respons, Acceptable Safety Profile, Low Utility of Inpt Care Inpatient DSM-V Dx: F20.0 Discharge Planning - Discharge Planning Discharge Plan: Outpatient Follow Up Outpatient Program: [facility] Recommendations for Continuing Care: Medication Management, Psychotherapy, Primary Care Followup, Specialty Followup Medications: Current Medications Aspirin (Aspirin Tab*) 325 mg PO DAILY [facility] Last Admin: 06/08/19 09:53 Dose: Not Given Benztropine Mesylate (Cogentin Tab*) 2 mg PO DAILY [facility] Last Admin: 06/08/19 09:53 Dose: 2 mg Benztropine Mesylate (Cogentin Tab*) 1 mg PO BEDTIME [facility] Last Admin: 06/07/19 21:02 Dose: 1 mg Mirtazapine (Remeron Tab*) 7.5 mg PO BEDTIME [facility] Last Admin: 06/07/19 21:03 Dose: 7.5 mg Naproxen (Naprosyn Tab*) 500 mg PO BID PRN PRN Reason: PAIN - MODERATE Last Admin: 06/05/19 20:44 Dose: 500 mg Paliperidone (Invega Er Tab*) 6 mg PO BEDTIME [facility] Last Admin: 06/07/19 21:04 Dose: 6 mg Discharge Planning: Prescriptions provided for discharge [] Yes [] No Follow up care details as per social work arrangements. Patient response to discharge plan: [] eager for discharge [] agreeable with discharge plan [] ambivalent about discharge [] disagrees with discharge today
--- NOTE | 2019-06-11 18:41 | DS ---
CC: [facility]; Dr. Arroyo; Dr. Kwan * DISCHARGE SUMMARY: DATE OF ADMISSION: 06/01/19 DATE OF DISCHARGE: 06/08/19 SUPERVISING PSYCHIATRIST: Dr. Oleg Baires.* (DICTATED BY BENITO ARMENTA) DIAGNOSES: Schizophrenia, rule out Parkinson's disease. CONDITION AT THE TIME OF DISCHARGE: Improved. The patient is euthymic and well related. She is irritable at times and appears at her baseline. She is notified of recommendation from neurologist, Dr. Kwan, and seeing him in his clinic. She reports readiness to return home as soon as possible. She endorses the fixed delusion of not having a mental illness and goes into great detail about her traumatic time in the womb. She states her life has been one harrowing event after another and that she is stuck between hell on earth and going to hell. She states her has taught her a prayer that helps and she cites the Lord Prayer. She denies suicidal ideation. She has been safe on all checks and ADLs have been completed. The patient is discharged to home. MENTAL STATUS EXAM: The patient is a 74-year-old white female with dark curly hair and casually dressed in her own clothing. She has a slumped kyphotic posture and bilateral hand tremors, more so prevalent in her right hand. She is cooperative with interview. She is alert and oriented x3. Eye contact is good. Speech is loud at times, otherwise articulate and spontaneous. Concentration good. Memory 3/3. Mood is irritable with full range of affect. Thought process is circumstantial, overinclusive. Thought content is negative for SI, HI, , or passive wish. She denies auditory or visual hallucinations, but is observed to respond to internal stimuli. She has fixed delusion of not having mental illness. Insight and judgment are poor. Fund of knowledge is adequate. Intellect is likely average. INSTRUCTIONS GIVEN TO THE PATIENT: A. Medications: The new medications are: 1. Paliperidone 6 mg at bedtime. 2. Benztropine 2 mg p.o. in the morning. 3. Benztropine 1 mg at bedtime. 4. Mirtazapine 7.5 mg p.o. q.h.s. She can continue on: 1. Aspirin 325 mg p.o. daily. 2. Naproxen 500 mg p.o. b.i.d. p.r.n. B. Diet: Regular. C. Activity: Ambulation as tolerated. Tobacco cessation is not applicable. There are no pending labs or diagnostic studies. D. Followup care: The patient will follow up with [facility] on , 06/14/19; Dr. Arroyo for primary care on the same day; and Dr. Kwan, [facility] will call her with an appointment. E. Substance use followup is not applicable. HOSPITAL COURSE: Part A. Reason for admission: The patient presented to the emergency department after an appointment with her outpatient psychiatrist due to paranoid ideation, inability to care for herself, and medication nonadherence. HPI: Emanuel has many pseudonyms and has gone by Liang Cordova, Emanuel Webber, and states that she wants to be called Cheryl currently. She is well known to this unit and community due to multiple admissions to this unit and treatment at [facility] for over a decade. Today's presentation is similar to previous presentations in that she stopped taking Geodon, she has been increasingly isolative and not caring for herself at the [facility]. She reports thoughts that the food is poisoned. She states that she has a funny thing in her mouth when she eats the food, she states they taste like "trash." She also reports that she thinks that somebody is putting something into her TV and she sees an object in the corner of her screen every time she looks at it. She is increasingly agitated while discussing this. She states they also took away channel 6, the conflict was resolved, and channel 6 returned. She reports a decrease in weight. She states that she has not been eating. She denies having a diagnosis of schizophrenia and reports that she was diagnosed with this in error. She presents as disheveled, malodorous, and incontinent. She is tremulous and states that she was going to go to the neurologist, but came here instead. She states that her feet will not work and they go backwards. She reports that nobody likes her at the [facility] and nobody likes her anywhere she goes. She states she keeps to herself. She listens to Patrice Carlos in her 's room during the day and sleeps in her own room at night. She denies auditory or visual hallucinations; however, she endorsed seeing what was likely hallucinations in regard to her television. She presents as irritable. She needed much prompting and assurance from staff in order to complete shower and hygiene activities. She is refusing to give a urine sample and is incontinent in her Depends. She is requesting a consult from Physical Therapy due to her change in gait. Part B. Psychiatric treatment rendered: The patient was admitted to the adult behavioral services unit on involuntary status. Code status was full. She was initially placed on 15-minute checks for safety and remained on 15-minute checks for safety due to balance and gait disturbances. She was allowed to go on staff pass. She initially refused an antipsychotic, but eventually accepted paliperidone. She had been treated in the past with Bactrim and even though she refused to give a urine sample initially, we empirically started treatment with Macrodantin. When she did provide a urine sample, it was on the last day of antibiotic treatment and the urine culture was negative. The patient was seen by Dr. Kwan, neurologist. He was noting some likely parkinsonian involvement especially with her complaints of walking backwards know as retropulsion and the asymmetrical presentation of her symptoms. He agreed to continue to see her in the outpatient setting. We started paliperidone at 3 mg , which she tolerated well. Due to her severe and persistent mental illness, I increased it to 9 mg. The following morning, the patient reported worsening balance and sensation of falling backwards and slowly lowered herself to the bathroom floor. She denied injury. She reported that her legs often stopped working seemingly without any reason and they would intermittently return to normal activity. Nevertheless, we decreased the paliperidone to 6 mg and she tolerated this well. There were no further episodes of falling or near falling. She slept fairly well while here. She was very much seclusive and did not want to participate in groups or programming. She did allow nursing staff to assist her with ADLs, during which pieces of matted hair needed to be removed. The patient also met with Physical Therapy when she was agreeable to do so. She was increasingly interactive and as stated above appeared to return to baseline in that she was irritable and outspoken, but directable and cooperative. The patient reported desire to be discharged as soon as possible. She lives at the [facility] and has adequate supervision; therefore, discharge was agreed upon by treatment team. FLOR WHITE NP [id number]/[facility] #: [id number] JORGE
== END 2019-06-08 11:21 | disposition home or self-care (01) | DRG 750 ==
LOC: ED 15:10 → BSU 06-01 02:10 → ED 06-01 03:47
PROVIDERS: ADMIT Psychiatry & Neurology Psychiatry; ATTEND Psychiatry & Neurology Psychiatry
DX: F20.0 Paranoid schizophrenia (principal); G20 Parkinson's disease; L68.0 Hirsutism; R32 Unspecified urinary incontinence; K21.9 Gastro-esophageal reflux disease without esophagitis; K59.09 Other constipation; M19.90 Unspecified osteoarthritis, unspecified site; F41.9 Anxiety disorder, unspecified; Z79.82 Long term (current) use of aspirin; Z91.14 Patient's other noncompliance with medication regimen; Z87.440 Personal history of urinary (tract) infections; Z78.0 Asymptomatic menopausal state; Z80.3 Family history of malignant neoplasm of breast
CPT/HCPCS: 36415; 80053; 80061; 80320; 80329; 81003; 81015; 83036; 84443; 85025; 87086; 99222; 99231; 99232; 99233; 99238; 99285; A9270-GY; G0480; G8978-GP-CH; G8978-GP-CI; G8979-GP-CH; G8980-GP-CH

== ENCOUNTER 2019-07-22 09:20 | Emergency (ER) | payer MEDICARE, MEDICAID ==
[2019-07-22 09:28] VITALS: BP 162/59
--- NOTE | 2019-07-22 10:38 | ED ---
Upper Extremity Pain - HPI Summary HPI Summary: Pt. is a 74 y.o female who presents to the ER for right upper arm pain x several months. Pt. denies any recent falls or injuries. Pt. states she saw her PCP for pain and is told she has arthritis but pt. states she does not believe she has arthritis. Pt. states she was rx naproxen but that it does not help with pain. Pt. states she does not believe in tylenol. Pt. states she was in the ED for pain in her back secondary to arthritis and was given "street drugs" that cured her pain. Sxs are mild in severity. Using right arm makes sxs worse. Nothing makes sxs better. - History of Current Complaint Chief Complaint: EDExtremityUpper Stated Complaint: RT ARM PAIN PER PT Time Seen by Provider: 07/22/19 10:04 Hx Obtained From: Patient - Allergies/Home Medications Allergies/Adverse Reactions: Allergies Allergy/AdvReac Type Severity Reaction Status Date / Time No Known Allergies Allergy Verified 07/22/19 09:28 PMH/Surg Hx/FS Hx/Imm Hx Previously Healthy: Yes Endocrine/Hematology History: Denies: Hx Diabetes, Hx Thyroid Disease Cardiovascular History: Reports: Hx Myocardial Infarction Denies: Hx Congestive Heart Failure, Hx Hypertension Respiratory History: Denies: Hx Asthma, Hx Chronic Obstructive Pulmonary Disease (COPD) GI History: Reports: Hx Gastroesophageal Reflux Disease, Other GI Disorders - " a wrinkle on my butt" Denies: Hx Ulcer History: Reports: Other Problems/Disorders - "I have a UTI" Denies: Hx Dialysis, Hx Renal Disease Musculoskeletal History: Reports: Hx Arthritis - right arm, Other Musculoskeletal History - "my legs stopped working four days ago and keep going back on me" Sensory History: Denies: Hx Contacts or Glasses, Hx Legally Blind, Hx Deafness, Hx Hearing Aid Opthamlomology History: Denies: Hx Contacts or Glasses, Hx Legally Blind Neurological History: Reports: Other Neuro Impairments/Disorders - Schizophrenia Denies: Hx Headaches, Hx Seizures Psychiatric History: Reports: Hx Anxiety, Hx Inpatient Treatment - Last at [facility] 01/2018, Hx Community Mental Health Tx, Hx Schizophrenia Denies: Hx Eating Disorder, Hx Depression, Hx Panic Disorder, Hx Post Traumatic Stress Disorder, Hx Suicide Attempt, Hx of Violent Episodes Against Others, Hx Substance Abuse - Surgical History Surgery Procedure, Year, and Place: n/a Infectious Disease History: No Infectious Disease History: Denies: Hx Clostridium Difficile, Hx Hepatitis, Hx Human Immunodeficiency Virus (HIV), Hx of Known/Suspected MRSA, Hx Shingles, Hx Tuberculosis, Hx Known/ Suspected VRE, Hx Known/Suspected VRSA, History Other Infectious Disease, Traveled Outside the [place] in Last 30 Days - Family History Known Family History: Positive: Other - breast cancer, Non-Contributory Negative: Diabetes - Social History Occupation: Retired Lives: With Family Alcohol Use: None Hx Substance Use: No Substance Use Type: Reports: None Hx Tobacco Use: No Smoking Status (MU): Never Smoked Tobacco Amount Used/How Often: pt has not used any tobacco products in the last 30 days. Have You Smoked in the Last Year: No Review of Systems Positive: Other - Right arm pain. Skin: Negative Neurological: Negative All Other Systems Reviewed And Are Negative: Yes Physical Exam Triage Information Reviewed: Yes Vital Signs On Initial Exam: Initial Vitals Temp Pulse Resp BP Pulse Ox 98.1 F 62 16 162/59 97 07/22/19 09:23 07/22/19 09:23 07/22/19 09:23 07/22/19 09:23 07/22/19 09:23 Vital Signs Reviewed: Yes Appearance: Positive: Well-Appearing - Pt. sitting on bed in NAD. Anxious. Skin: Positive: Warm, Dry Head/Face: Positive: Normal Head/Face Inspection Eyes: Positive: Normal, EOMI Neck: Positive: Supple Musculoskeletal: Positive: Other - Good right radial pulse. 5/5 strength in right arm. Pain to mid humerous. No rashes or breaks in skin. Pain with abduction of arm. Neurological: Positive: Normal, CN Intact II-III Psychiatric: Positive: Affect/Mood Appropriate Procedures - Sedation Patient Received Moderate/Deep Sedation with Procedure: No Diagnostics - Vital Signs Vital Signs Temp Pulse Resp BP Pulse Ox 07/22/19 09:23 98.1 F 62 16 162/59 97 - Laboratory Lab Statement: Any lab studies that have been ordered have been reviewed, and results considered in the medical decision making process. Course/Dx - Course Course Of Treatment: Patient with ongoing right atraumatic arm pain. Patient had x-ray of humerus done earlier this year which showed arthritic changes. Patient declines any type of pain medication including Tylenol. She agreed to heat pack. Advised patient to follow-up with family doctor for further management. Patient understands and agrees with plan. - Diagnoses Differential Diagnosis/HQI/PQRI: Positive: Arthritis, Fracture (Closed), Strain , Sprain Provider Diagnoses: Arm pain, Osteoarthritis Discharge ED - Sign-Out/Discharge Documenting (check all that apply): Patient Departure - Discharge Plan Condition: Good Disposition: HOME Patient Education Materials: Osteoarthritis (ED), Arm Pain (ED) Referrals: Aron Arroyo MD [Primary Care Provider] - Additional Instructions: Call your PCP tomorrow for an appointment Recommend tylenol for pain as directed Ice or heat arm intermittently Activity as tolerated Return to ER if symptoms change or worsen - Billing Disposition and Condition Condition: GOOD Disposition: Home - Attestation Statements Provider Attestation: I was available for consultation for this patient. I did not evaluate the patient or participate in any medical decision making or disposition decisions unless I am specifically named in the chart as having consulted on the patient. If I have consulted on the patient, please see my own ED note on the patient encounter. Angélica Delgadillo MD
== END 2019-07-22 10:30 | disposition home or self-care (01) ==
LOC: ED 09:20
DX: M79.621 Pain in right upper arm (principal); M19.011 Primary osteoarthritis, right shoulder; I25.2 Old myocardial infarction
CPT/HCPCS: 99282

== ENCOUNTER 2019-08-27 15:40 | Inpatient (IN) | payer MEDICARE, MEDICAID ==
--- NOTE | 2019-08-27 16:08 | ED ---
Neurological HPI - HPI Summary HPI Summary: The patient is a 74 y/o F arriving by ambulance to [facility] from [facility] with a chief complaint of difficulty ambulating recently. She reports that she was recently diagnosed with Parkinsons and was placed on a medication. She has since been experiencing difficulty walking and weakness as her legs bring her backwards, and she has fallen twice following the diagnosis. She notes that her legs shake, but she denies any numbness or edema of the lower extremities. She is not currently seeing a provider for Parkinson' s. She states took herself off of her anti-psychotic medications because she doesnt believe she needs them. She states she does not feel safe at the facility she lives at. Her lives next door to her in the facility but not in the same apartment. PMHx: arthritis, CO, GERD, schizophrenia. Nonsmoker, no EtOH, no substance use. Medications reviewed. Allergies noted. - History of Current Complaint Stated Complaint: UNABLE TO WALK PER EMS Time Seen by Provider: 08/27/19 15:49 Hx Obtained From: Patient Onset/Duration: Started days ago, Still Present Onset Severity: Moderate Neurological Deficit Location: RLE, LLE Pain Intensity: 0 Pain Scale Used: 0-10 Numeric Character: Weak Aggravating: Unknown Alleviating: Nothing Associated Signs and Symptoms: Positive: Weakness - BLE - Additional Pertinent History Primary Care Physician: AMARI - Allergy/Home Medications Allergies/Adverse Reactions: Allergies Allergy/AdvReac Type Severity Reaction Status Date / Time No Known Allergies Allergy Verified 07/22/19 09:28 Home Medications: Home Medications Acetaminophen TAB* [Tylenol TAB*] 650 mg PO Q6H PRN 08/27/19 [History Confirmed 08/27/19] Amantadine CAP* [Symmetrel CAP*] 100 mg PO DAILY 08/27/19 [History Confirmed ] Carbidopa/Levodop 25/100 MG(*) [Sinemet 25/100 TAB(*)] 1 tab PO DAILY 08/27/19 [ History Confirmed 08/27/19] PMH/Surg Hx/FS Hx/Imm Hx Endocrine/Hematology History: Denies: Hx Diabetes, Hx Thyroid Disease Cardiovascular History: Reports: Hx Myocardial Infarction Denies: Hx Congestive Heart Failure, Hx Hypertension Respiratory History: Denies: Hx Asthma, Hx Chronic Obstructive Pulmonary Disease (COPD) GI History: Reports: Hx Gastroesophageal Reflux Disease, Other GI Disorders - " a wrinkle on my butt" Denies: Hx Ulcer History: Reports: Other Problems/Disorders - "I have a UTI" Denies: Hx Dialysis, Hx Renal Disease Musculoskeletal History: Reports: Hx Arthritis - right arm, Other Musculoskeletal History - "my legs stopped working four days ago and keep going back on me" Sensory History: Denies: Hx Contacts or Glasses, Hx Legally Blind, Hx Deafness, Hx Hearing Aid Opthamlomology History: Denies: Hx Contacts or Glasses, Hx Legally Blind Neurological History: Reports: Other Neuro Impairments/Disorders - Parkinson's Denies: Hx Headaches, Hx Seizures Psychiatric History: Reports: Hx Anxiety, Hx Inpatient Treatment - Last at [facility] 01/2018, Hx Community Mental Health Tx, Hx Schizophrenia, Other Psychiatric Issues/Disorders - Schizophrenia Denies: Hx Eating Disorder, Hx Depression, Hx Panic Disorder, Hx Post Traumatic Stress Disorder, Hx Suicide Attempt, Hx of Violent Episodes Against Others, Hx Substance Abuse - Surgical History Surgical History: None Surgery Procedure, Year, and Place: n/a Infectious Disease History: No Infectious Disease History: Denies: Hx Clostridium Difficile, Hx Hepatitis, Hx Human Immunodeficiency Virus (HIV), Hx of Known/Suspected MRSA, Hx Shingles, Hx Tuberculosis, Hx Known/ Suspected VRE, Hx Known/Suspected VRSA, History Other Infectious Disease, Traveled Outside the [place] in Last 30 Days - Family History Known Family History: Positive: Other - breast cancer Negative: Diabetes - Social History Alcohol Use: None Hx Substance Use: No Substance Use Type: Reports: None Hx Tobacco Use: No Smoking Status (MU): Never Smoked Tobacco Amount Used/How Often: pt has not used any tobacco products in the last 30 days. Have You Smoked in the Last Year: No Review of Systems Negative: Edema Neurological: Other - difficulty ambulating Positive: Weakness - BLE. Negative: Numbness All Other Systems Reviewed And Are Negative: Yes Physical Exam - Summary Physical Exam Summary: Appearance: The patient is well-nourished in no acute distress and in no acute pain. Skin: The skin is warm and dry, and skin color reflects adequate perfusion. HEENT: The head is normocephalic and atraumatic. The pupils are equal and reactive. The conjunctivae are clear and without drainage. Nares are patent and without drainage. Mouth reveals moist mucous membranes, and the throat is without erythema and exudate. The external ears are intact. The ear canals are patent and without drainage. The tympanic membranes are intact. Neck: The neck is supple with full range of motion and non-tender. There are no carotid bruits. There is no neck vein distension. Respiratory: Chest is non-tender. Lungs are clear to auscultation and breath sounds are symmetrical and equal. Cardiovascular: Heart is regular rate and rhythm. There is no murmur or rub auscultated. There is no peripheral edema and pulses are symmetrical and equal. Abdomen: The abdomen is soft and non-tender. There are normal bowel sounds heard in all four quadrants and there is no organomegaly palpated. Musculoskeletal: There is no back tenderness noted. Extremities are non-tender with full range of motion. There is good capillary refill. There is no peripheral edema or calf tenderness elicited. Neurological: Patient is alert and oriented to person, place and time. The patient has symmetrical motor strength in all four extremities. Cranial nerves are grossly intact. Deep tendon reflexes are symmetrical and equal in all four extremities. The patient has a resting tremor consistent with diagnosed Parkinson's Disease. Psychiatric: The patient has an appropriate affect and does not exhibit any anxiety or depression. Triage Information Reviewed: Yes Vital Signs On Initial Exam: Initial Vitals Temp Pulse Resp BP Pulse Ox 98.1 F 69 15 120/63 99 08/27/19 15:47 08/27/19 15:47 08/27/19 15:47 08/27/19 15:47 08/27/19 15:47 Vital Signs Reviewed: Yes Procedures - Sedation Patient Received Moderate/Deep Sedation with Procedure: No Diagnostics - Vital Signs Vital Signs Temp Pulse Resp BP Pulse Ox 08/27/19 15:52 120/63 08/27/19 15:47 98.1 F 69 15 120/63 99 - Laboratory Result Diagrams: 08/27/19 16:53 08/27/19 16:53 Lab Statement: Any lab studies that have been ordered have been reviewed, and results considered in the medical decision making process. - EKG 1645 Cardiac Rate: NL - 59 bpm EKG Rhythm: Sinus Rhythm EKG Comparison: Other - New T-wave changes since April 2019. Summary of EKG Findings: An EKG at 1645 reveals normal sinus rhythm at 59 BPM. Nonspecific t-wave changes intralaterally. No STEMI. ED physician has reviewed and interpreted this EKG. Course/Dx - Course Course Of Treatment: Ms. Wilburn was found to have a low potassium and I spoke with the hospitalist about admission. It's unclear whether or not her Parkinson 's has gotten to the point where she is not able to take care of herself. - Diagnoses Provider Diagnoses: Hypokalemia - Physician Notifications Discussed Care Of Patient With: Ariana Wong - hospitalist Time Discussed With Above Provider: 17:50 Instructed by Provider To: Other - I discussed the patient's case with Dr. Wong, who accepts the patient for admission. Discharge ED - Sign-Out/Discharge Documenting (check all that apply): Patient Departure - Patient accepted for admission by Dr. Wong. - Discharge Plan Condition: Stable Disposition: ADMITTED TO [facility] - Billing Disposition and Condition Condition: STABLE Disposition: Admitted to [facility] - Attestation Statements Document Initiated by Ireneibe: Yes Documenting Scribe: Martha Chase Provider For Whom Colleen is Documenting (Include Credential): Dr. Shawn Steven MD Scribe Attestation: Martha Marcelino, scribed for Dr. Shawn Steven MD on 08/27/19 at 2111. Scribe Documentation Reviewed: Yes Provider Attestation: The documentation as recorded by the Martha brewster accurately reflects the service I personally performed and the decisions made by me, Dr. Shawn Steven MD Status of Scribe Document: Viewed
[2019-08-27 17:05] LABS: ABS Basophils 0.1 10^3/ul (0-0.2); ABS Eosinophils 0.2 10^3/ul (0-0.6); ABS Lymphocytes 1.7 10^3/ul (1.0-4.8); ABS Monocytes 0.9 10^3/ul (0-0.8); ABS Neutrophils 5.4 10^3/ul (1.5-7.7); Eosinophil % 2.6 %; Hematocrit 35 % (35-47); Hemoglobin 11.7 g/dL (12.0-16.0); Lymphocyte % 20.6 %; Mean Corpuscular HGB Conc 33 g/dL (31-36); Mean Corpuscular Hemoglobin 29 pg (27-31); Mean Corpuscular Volume 86 fL (80-97); Mean Platelet Volume 7.3 fL (7.4-10.4); Nucleated Red Blood Cells % 0.1; Platelet Count 304 10^3/uL (150-450); Red Blood Count 4.08 10^6 /uL (3.70-4.87); Red Cell Distribution Width 14 % (10-15); White Blood Count 8.3 10^3/uL (3.5-10.8)
[2019-08-27 17:26] LABS: INR 1.15 (0.82-1.09)
[2019-08-27 17:30] LABS: Troponin I 0.01 ng/mL (<0.03)
[2019-08-27 17:32] LABS: Albumin 3.8 g/dL (3.2-5.2); Albumin/Globulin Ratio 1.3 (1-3); BUN/Creatinine Ratio 27.3 (8-20); C Reactive Protein 1.44 mg/L (<8.01); Calcium 8.9 mg/dL (8.6-10.3); EGFR African American 106.5 (>60); Globulin 2.9 g/dL (2-4); Total Bilirubin 0.4 mg/dL (0.2-1.0); Total Protein 6.7 g/dL (6.4-8.9)
[2019-08-27 17:38] LABS: Potassium 2.6 mmol/L (3.5-5.0)
[2019-08-27 17:43] LABS: TSH (Thyroid Stimulating Horm) 0.38 mcIU/mL (0.34-5.60)
[2019-08-27] MEDS: KCL 20 MEQ/100 ML IVPREMIX* 20 MEQ/100 ML BAG IV SCH ×2 (18:19→21:57)
[2019-08-27] MEDS ORDERED: Potassium Chlor TAB* 20 MEQ TAB.ER PO ONE (18:26)
[2019-08-27] MEDS ORDERED: Ibuprofen TAB* 400 MG PO PRN (18:27)
[2019-08-27] MEDS ORDERED: Acetaminophen TAB* 325 MG PO PRN (18:27)
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
[2019-08-27] MEDS: Heparin VIAL(*) 5000 UNITS/ML VIAL (FIVE THOUSAND) SUBCUT SCH (21:56)
[2019-08-27] MEDS: Benztropine TAB* 1 MG PO SCH (21:57)
[2019-08-27] MEDS: Paliperidone ER TAB* 6 MG TAB.ER PO SCH (21:58)
[2019-08-28 06:57] LABS: BUN/Creatinine Ratio 21.9 (8-20); EGFR African American 110.4 (>60); EGFR Non-African American 91.2 (>60); Potassium 3.6 mmol/L (3.5-5.0)
[2019-08-28] MEDS ORDERED: Carbidopa/Levodop 25/100 MG TAB(*) PO SCH (09:00)
[2019-08-28 09:18] LABS: Folate > 20.00 ng/mL (>3.99)
[2019-08-28] MEDS: Vitamin THERAPEUTIC TAB PO SCH (09:22)
[2019-08-28] MEDS: Amantadine CAP* 100 MG PO SCH (09:22)
[2019-08-28] MEDS: Heparin VIAL(*) 5000 UNITS/ML VIAL (FIVE THOUSAND) SUBCUT SCH ×2 (09:22→21:42)
[2019-08-28] MEDS: Benztropine TAB* 2 MG PO SCH (09:22)
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
[2019-08-28] MEDS: Benztropine TAB* 1 MG PO SCH (21:40)
[2019-08-28] MEDS: Paliperidone ER TAB* 6 MG TAB.ER PO SCH (21:41)
[2019-08-28 21:58] LABS: Urine Appearance Clear; Urine Bilirubin Negative (Negative); Urine Blood 1+ (Negative); Urine Color Yellow; Urine Glucose Negative (Negative); Urine Ketones Negative (Negative); Urine Nitrite Negative (Negative); Urine Protein Negative (Negative); Urine Specific Gravity 1.014 (1.010-1.030); Urine Urobilinogen Negative (Negative)
[2019-08-28 22:18] LABS: Urine Bacteria Absent (Absent); Urine Red Blood Cell Trace(0-2/hpf) (Absent); Urine White Blood Cell Trace(0-5/hpf) (Absent)
[2019-08-29] MEDS: Heparin VIAL(*) 5000 UNITS/ML VIAL (FIVE THOUSAND) SUBCUT SCH (07:53)
[2019-08-29] MEDS: Benztropine TAB* 2 MG PO SCH (07:59)
[2019-08-29] MEDS: Amantadine CAP* 100 MG PO SCH (08:00)
[2019-08-29] MEDS: Vitamin THERAPEUTIC TAB PO SCH (08:00)
--- NOTE | 2019-08-29 15:37 | CONS ---
CONSULTATION REPORT: DATE OF CONSULT: 08/29/19 ATTENDING CLINICIAN: BENITO Israel CONSULTING PHYSICIAN: Dr. Oleg Baires. REASON FOR CONSULT: Psychiatric clearance for placement. SUBJECTIVE HISTORY: Psychiatry is asked to evaluate the appropriateness of placement for this 74-year-old white female with a history of schizophrenia, who presents to the hospital with falls secondary to progressive Parkinson's disease. The patient resides at the [facility] affiliated with [facility] and apparently had 2 separate falls inside of that facility. She has been recently diagnosed with Parkinson's; however, the neurology team is limited somewhat in the treatment that they can provide given the fact that dopaminergic medications place her at the risk of worsening psychosis. Ms. Wilburn is well known to the psychiatric department here at [facility] having had several previous [facility] admissions in the past, most recently in May of 2019. The primary team would like to place her in subacute rehab, which the patient is very much agreeable with; however, they would like her psychiatrically cleared to do so. When I meet with the patient, she is sitting calmly in her room, eating a bowl of chicken soup. I did speak with nursing staff on 4 , who indicates that Emanuel has been mostly cooperative with treatment, although there are some of her medications that she has intermittently refused. The patient appears somewhat disheveled and hirsute having significant hair growth on her upper lip and chin. She is calm and cooperative with my evaluation. She states that her psychiatric issues are under control and that she is not hearing voices or seeing things. She similarly states that she has not had suicidal or homicidal thinking within the last several months. When I asked her about subacute rehab placement, she is agreeable with this, saying that she has already discussed it with her doctors here. She accepts that she has Parkinson's disease and understands that this is degenerative and progressive in nature and is unfortunately likely to get worse in the future. With that being said, she does state that she is willing to get some help from physical and occupational therapies in terms of maximizing her motor functioning at this time. The patient's baseline is that she is chronically somewhat delusional and bizarre and this is very much on display when she discusses some metaphysical beliefs on her part that for example when she was born she was placed back temporarily inside of her mother' s womb. She has had no instance of agitation or acting out during this hospitalization. PAST PSYCHIATRIC HISTORY: The patient's last [facility] admission was in May 2019 due to disorganized thought process and inability to care for herself. She has an established diagnosis of schizophrenia and tends to receive services at the [facility]. Her most recent antipsychotic medication was paliperidone, which she accepts in an off and on manner. Previous medications include olanzapine, Risperdal and quetiapine as well as ziprasidone. She denies any history of trauma, abuse, or neglect. PAST MEDICAL HISTORY: Significant for Parkinson's disease. CURRENT MEDICATIONS: Include: 1. Multivitamin daily. 2. Invega extended release 6 mg nightly. 3. Naproxen 375 mg b.i.d. 4. Cogentin 1 mg at night and 2 mg in the morning. 5. Amantadine 100 mg p.o. daily. ALLERGIES: No known drug allergies. FAMILY HISTORY: She denies any history of suicide in the family. SOCIAL HISTORY: The patient was born and raised in [place], [place]. She grew up with both parents and a sister who is 2 years older and a brother who is 10 years younger. Her father was a dentist. She is historically educated up to 8th grade, but reports that she is literate. She has not had any consistent work history. Her parents are . She is currently and her is a mental health consumer, who lives in the same [facility] in a separate room. MENTAL STATUS EXAM: The patient is an aging white female with stringy dark hair , who is hirsute with facial hair. She is in a patient gown and slightly disheveled, sitting calmly, eating lunch. She is cooperative, makes fairly good eye contact. Speech has a [facility] accent and is fluent. Mood appears to be euthymic with a somewhat flattened affect. Thought process is linear and goal directed. Thought content is significant for her agreement to go to subacute rehab. She is denying suicidal or infanticidal ideations. She denies auditory or visual hallucinations. Insight and judgment are fair given her willingness to receive rehabilitation. Cognitively, she is awake and alert with what would appear to be an average intellect. DIAGNOSES: Austin I: Schizophrenia. Austin II: Deferred. IMPRESSION: The patient is a 74-year-old white female with a history of schizophrenia, who is currently hospitalized on the 4th floor due to falls and complications of worsening Parkinson's disease, whom the primary team would like to send to subacute rehab. The patient is psychiatrically cleared for this and I see no barriers to her successful rehabilitation in an [facility] setting. The patient is stable on her current antipsychotic medication, which she did agree to last night. The patient will be going to subacute rehab, which she is consenting to. At this time, I do believe that she has capacity to make that decision. PLAN: The patient is to remain on Invega 6 mg p.o. daily. She is psychiatrically cleared to be transferred to a subacute rehab facility. Psychiatry is signing off at this time, but can be reconsulted in the event of any significant changes in the patient's presentation. Thank you for the consult. [id number]/LOAN #: [id number] JORGE
--- NOTE | 2019-08-29 16:46 | PN ---
Subjective Date of Service: 08/29/19 Interval History: Ms. Wilburn states she feels "alright 'til I walk then I fall backwards." She has no complaints today, except gait instability with ambulation and frequent falls backwards. Objective Active Medications: Acetaminophen (Tylenol Tab*) 650 mg PO Q6H PRN PRN Reason: PAIN - MODERATE Amantadine HCl (Symmetrel Cap*) 100 mg PO DAILY [facility] Last Admin: 08/29/19 08:00 Dose: Not Given Benztropine Mesylate (Cogentin Tab*) 1 mg PO BEDTIME [facility] Last Admin: 08/28/19 21:40 Dose: Not Given Benztropine Mesylate (Cogentin Tab*) 2 mg PO QAM [facility] Last Admin: 08/29/19 07:59 Dose: 2 mg Heparin Sodium (Porcine) (Heparin Vial(*)) 5,000 units SUBCUT Q12HR [facility] Last Admin: 08/29/19 07:53 Dose: Not Given Ibuprofen (Motrin Tab*) 400 mg PO Q6H PRN PRN Reason: PAIN Multivitamins (Theragran Tab*) 1 tab PO DAILY [facility] Last Admin: 08/29/19 08:00 Dose: 1 tab Paliperidone (Invega Er Tab*) 6 mg PO BEDTIME [facility] Last Admin: 08/28/19 21:41 Dose: 6 mg Vital Signs: Temp Pulse Resp BP Pulse Ox 97.5 F 74 20 107/58 99 08/29/19 16:00 08/29/19 16:00 08/29/19 16:00 08/29/19 16:00 08/29/19 16:00 Oxygen Devices in Use Now: None Appearance: Ms. Wilburn is an older white female who is sitting up in bed; she has a flat affect. Unkempt appearance, malodorous. Pleasant, cooperative. Eyes: No Scleral Icterus, PERRLA Ears/Nose/Mouth/Throat: NL Teeth, Lips, Gums, Clear Oropharnyx, Mucous Membranes Moist Neck: NL Appearance and Movements; NL JVP, Trachea Midline Respiratory: Symmetrical Chest Expansion and Respiratory Effort, Clear to Auscultation Cardiovascular: NL Sounds; No Murmurs; No JVD, RRR, No Edema Abdominal: NL Sounds; No Tenderness; No Distention, No Hepatosplenomegaly Extremities: No Edema, No Clubbing, Cyanosis, - - mild UE tremors Neurological: Alert and Oriented x 3, NL Muscle Strength and Tone Result Diagrams: 08/27/19 16:53 08/28/19 06:20 Assess/Plan/Problems-Billing Ms Wilburn is a 74 yo F who has a h/o long standing difficult to treat schizophrenia and recently diagnosed parkinson's disease who presented to the ER with c/o inability to walk and being unsafe at [place] with the inability to get out of the facility if there were to be a fire. - Patient Problems (1) Parkinson's disease Comment: -Neuro consulted; recommend d/c Sinemet due to concern for worsened psychiatric symptoms and no improvement with medication -continue PT -plan for d/c to [facility] as patient is unable to return to [place] at this time; placement pending at this time (2) Schizophrenia Comment: -pt is prescribed invega but does not take it; she is also prescribed amantadine which may help her parkinsons but she refuses this as well -psych consulted and recommends continuing invega; also cleared for placement as [facility] (3) DVT prophylaxis Comment: -Heparin (4) Full code status Status and Disposition: Inpatient. Discharge planning for [facility] pending.
[2019-08-30] MEDS: Paliperidone ER TAB* 6 MG TAB.ER PO SCH ×2 (00:02→20:15)
[2019-08-30] MEDS: Benztropine TAB* 1 MG PO SCH ×2 (00:02→20:15)
[2019-08-30] MEDS: Heparin VIAL(*) 5000 UNITS/ML VIAL (FIVE THOUSAND) SUBCUT SCH ×3 (00:02→20:08)
[2019-08-30 06:00] LABS: ABS Basophils 0.1 10^3/ul (0-0.2); ABS Eosinophils 0.2 10^3/ul (0-0.6); ABS Lymphocytes 2.4 10^3/ul (1.0-4.8); ABS Monocytes 1.2 10^3/ul (0-0.8); Eosinophil % 1.2 %; Hematocrit 35 % (35-47); Hemoglobin 11.9 g/dL (12.0-16.0); Lymphocyte % 18.7 %; Mean Corpuscular HGB Conc 34 g/dL (31-36); Mean Corpuscular Hemoglobin 29 pg (27-31); Mean Corpuscular Volume 86 fL (80-97); Mean Platelet Volume 7.5 fL (7.4-10.4); Platelet Count 247 10^3/uL (150-450); Red Blood Count 4.11 10^6 /uL (3.70-4.87); Red Cell Distribution Width 14 % (10-15); White Blood Count 12.8 10^3/uL (3.5-10.8)
[2019-08-30 06:18] LABS: BUN/Creatinine Ratio 29.2 (8-20); Calcium 8.9 mg/dL (8.6-10.3); EGFR African American 108.4 (>60); EGFR Non-African American 89.6 (>60); Potassium 4.1 mmol/L (3.5-5.0)
[2019-08-30] MEDS: Amantadine CAP* 100 MG PO SCH (08:30)
[2019-08-30] MEDS: Benztropine TAB* 2 MG PO SCH (09:30)
[2019-08-30] MEDS: Vitamin THERAPEUTIC TAB PO SCH (09:30)
--- NOTE | 2019-08-30 16:54 | PN ---
Subjective Date of Service: 08/30/19 Interval History: When asked how she is, Ms. Wilburn states "I've had better days." She states there is "no one to play with" and the food "isn't up to par." She continues to complain of difficulty with ambulation. She has no other complaints today. Objective Active Medications: Acetaminophen (Tylenol Tab*) 650 mg PO Q6H PRN PRN Reason: PAIN - MODERATE Amantadine HCl (Symmetrel Cap*) 100 mg PO DAILY [facility] Last Admin: 08/30/19 08:30 Dose: Not Given Benztropine Mesylate (Cogentin Tab*) 1 mg PO BEDTIME [facility] Last Admin: 08/30/19 00:02 Dose: 1 mg Benztropine Mesylate (Cogentin Tab*) 2 mg PO QAM [facility] Last Admin: 08/30/19 09:30 Dose: 2 mg Heparin Sodium (Porcine) (Heparin Vial(*)) 5,000 units SUBCUT Q12HR [facility] Last Admin: 08/30/19 08:30 Dose: Not Given Ibuprofen (Motrin Tab*) 400 mg PO Q6H PRN PRN Reason: PAIN Multivitamins (Theragran Tab*) 1 tab PO DAILY [facility] Last Admin: 08/30/19 09:30 Dose: 1 tab Paliperidone (Invega Er Tab*) 6 mg PO BEDTIME [facility] Last Admin: 08/30/19 00:02 Dose: Not Given Vital Signs: Temp Pulse Resp BP Pulse Ox 99.0 F 83 18 118/57 97 08/30/19 15:30 08/30/19 15:30 08/30/19 15:30 08/30/19 15:30 08/30/19 15:30 Oxygen Devices in Use Now: None Appearance: Ms. Wilburn is an older, average weight white female who is sitting in chair eating lunch. She is somewhat disheveled, but appears comfortable and in no acute distress. Eyes: No Scleral Icterus, PERRLA Ears/Nose/Mouth/Throat: NL Teeth, Lips, Gums, Clear Oropharnyx, Mucous Membranes Moist Neck: NL Appearance and Movements; NL JVP, Trachea Midline Respiratory: Symmetrical Chest Expansion and Respiratory Effort, Clear to Auscultation Cardiovascular: NL Sounds; No Murmurs; No JVD, RRR, No Edema Abdominal: NL Sounds; No Tenderness; No Distention, No Hepatosplenomegaly Extremities: - - b/l UE resting tremor Neurological: Alert and Oriented x 3, NL Muscle Strength and Tone Result Diagrams: 08/30/19 05:53 08/30/19 05:53 Microbiology and Other Data: Microbiology 08/28/19 21:50 Urine Culture - Final Urine No Growth (<1,000 CFU/mL) Assess/Plan/Problems-Billing Ms Wilburn is a 74 yo F who has a h/o long standing difficult to treat schizophrenia and recently diagnosed parkinson's disease who presented to the ER with c/o inability to walk and being unsafe at [facility] with the inability to get out of the facility if there were to be a fire. - Patient Problems (1) Parkinson's disease Comment: -Neuro consulted; recommend d/c Sinemet due to concern for worsened psychiatric symptoms and no improvement with medication -continue PT -plan for d/c to [facility] as patient is unable to return to [place] at this time -plan for d/c to [facility] in a.m. (2) Schizophrenia Comment: -pt is prescribed invega but does not take it; she is also prescribed amantadine which may help her parkinsons but she refuses this as well -psych consulted and recommends continuing invega; also cleared for placement at [facility] (3) DVT prophylaxis Comment: -Heparin (4) Full code status Status and Disposition: Inpatient. Discharge planning for [facility] pending.
[2019-08-31] MEDS: Amantadine CAP* 100 MG PO SCH (09:29)
[2019-08-31] MEDS: Heparin VIAL(*) 5000 UNITS/ML VIAL (FIVE THOUSAND) SUBCUT SCH (09:30)
[2019-08-31] MEDS: Benztropine TAB* 2 MG PO SCH (09:30)
[2019-08-31] MEDS: Vitamin THERAPEUTIC TAB PO SCH (09:30)
[2019-08-31 11:34] VITALS: BP 129/79
--- NOTE | 2019-08-31 12:20 | DS ---
CC: Dr. Aron Arroyo; Dr. Elaine Ramires* DISCHARGE SUMMARY: DATE OF ADMISSION: 08/27/19 DATE OF DISCHARGE: 08/31/19 PRIMARY CARE PROVIDER: Dr. Aron Arroyo. ATTENDING PHYSICIAN: Dr. Elaine Ramires* (dictated by BENITO Israel). PRIMARY DIAGNOSES: 1. Gait instability. 2. Frequent falls. SECONDARY DIAGNOSES: 1. Parkinson disease. 2. Schizophrenia. STUDIES WHILE IN THE HOSPITAL: CT brain without, impression: No acute intracranial pathology. CONSULTATIONS WHILE IN THE HOSPITAL: 1. Neurology. Assessment and plan: Recent DaTscan suggesting underlying idiopathic Parkinson disease with likely drug-induced Parkinson's overlying history of noncompliance. Seen by Dr. Kwan on 08/22/19, started on carbidopa /levodopa with titration schedule, currently taking 1 a day and having more difficulty walking with falls. Noncompliant with medications including Invega and amantadine. At this point, given the fact that she recently started carbidopa and levodopa and her walking and gait seemed to have worsened, going to stop carbidopa/levodopa. She reports taking it once a day, but given complicated psych history, I worry about the possibility of pushing carbidopa and levodopa dose and that it could worsen psychiatric symptoms. In addition, it appears she has worsened clinically. I think the best course of action would be hold that and get physical therapy. If she can stabilize and is not falling , I would suggest maybe retrying carbidopa and levodopa. As far as amantadine, okay with that as it might help her tremors with less Parkinson side effects. 2. Psychiatric consultation. The patient is to remain on Invega 6 mg p.o. daily. She is psychiatrically cleared to be transferred to a subacute rehab facility. Psych is signing off at this time. DISCHARGE MEDICATIONS: Home medications: 1. Acetaminophen 650 mg p.o. q.6 hours p.r.n. 2. Amantadine 100 mg p.o. daily. 3. Benztropine 2 mg p.o. q.a.m., 1 mg p.o. at bedtime. 4. Ibuprofen 400 mg p.o. q.6 hours p.r.n. 5. Paliperidone ER 6 mg p.o. at bedtime. 6. Theragran 1 tab p.o. daily. Discontinued home medication: Carbidopa/Levodopa. HISTORY OF PRESENT ILLNESS/HOSPITAL COURSE: Ms. Wilburn is a 74-year-old female with a past medical history of recently diagnosed Parkinson disease, recently started on carbidopa/levodopa; schizophrenia who presented to the ER today with complaints of gait instability, stating "I can't walk." She was started on carbidopa/levodopa on 08/24/19 and reports taking the medication once daily with plans to titrate up. However, the patient reports no improvement in her ambulation, in fact it has been worsening. She resides at [facility]. They felt that she was unsafe to continue living there and therefore was sent to the ER. She was subsequently admitted. A neurology consult was obtained. Neurology recommends discontinuation of carbidopa/levodopa at this time due to possible worsening of psychiatric symptoms and due to the fact that she has not improved on this medication. Therefore, this medication was discontinued. They recommended continuation of amantadine due to its effect of reducing tremors. The patient was evaluated by Physical Therapy who found that she required continued assistance with bed mobility, transfers, and gait. They recommended subacute rehab. The patient is agreeable to this and has been offered placement at [facility]. She is prepared for discharge to [facility] for subacute rehab at this time. Upon admission, the patient was noted to have a hypokalemia. This was repleted and the patient had a potassium within range throughout the rest of her stay. Psychiatry was consulted for further recommendations. Their recommendations included continuation of Invega daily and placement at subacute rehab. She has been cleared for placement. On the day of discharge, the patient states she is feeling well. Her only complaint today is that she continues to be unable to walk. She is agreeable to discharge to subacute rehab to work on this. REVIEW OF SYSTEMS: A 14-point review of systems has been performed and all the pertinent positives and negatives are in the HPI. All other systems are negative. PHYSICAL EXAMINATION: Vital Signs: Temperature 98.1 oral, heart rate 63, respiratory rate 18, oxygen saturation 98% on room air, blood pressure 119/65. General: Ms. Wilburn is a well-developed, well-nourished, average weight, somewhat disheveled, older white female, who is sitting up in bed. She appears to be in no acute distress. She is pleasant, cooperative, but at times odd. HEENT: PERRL. EOMI. Sclerae are nonicteric. Hearing is grossly intact. Oral mucous membranes are moist. There are no lesions. The pharynx is clear. The tongue is at midline. Palate elevates symmetrically. Cardiovascular: Regular rate and rhythm with S1, S2 present. No murmurs, rubs, clicks, or gallops. There is no JVD or peripheral edema. Pulmonary: Symmetrical chest expansion without use of accessory muscles. Clear to auscultation bilaterally without rhonchi, wheeze or rales. Abdomen: Bowel sounds in all quadrants. Soft, nontender to palpation. Musculoskeletal: The patient has a motor strength of 5/ 5 bilaterally in upper and lower extremities. There is no difference in strength. Her spares scheduler strength is also equal. Neuro: The patient is awake. She is alert and oriented x3. Cranial nerves II through XII are grossly intact. Muscle strength is equal at 5/5 bilaterally in the upper and lower extremities. DISCHARGE PLAN: Ms. Wilburn will be discharged to [facility] for subacute rehab. CONDITION: Good. DIET: Resume home diet. ACTIVITY: As tolerated. MEDICATIONS: 1. As above. 2. Discontinue Sinemet. EDUCATION: 1. Follow up with primary care provider at discharge from [facility]. 2. Follow up with Neurology as scheduled. 3. Return to the ER for any concerns. This is a summarized report of a complex medical history and hospital stay. For further details, please see the entire medical record. TIME SPENT: Approximately 35 minutes was spent on this discharge, greater than half that time was spent [id number] with the patient discussing discharge plans and instructions. BENITO MAJANO [id number]/CPS #: [id number] JORGE
== END 2019-08-31 13:50 | DRG 57 ==
LOC: ED 15:40 → MED 18:24 → OBSVTOIN 08-28 11:00
PROVIDERS: ADMIT Hospitalist; ATTEND Internal Medicine
DX: G20 Parkinson's disease (principal); F20.9 Schizophrenia, unspecified; K21.9 Gastro-esophageal reflux disease without esophagitis; M19.041 Primary osteoarthritis, right hand; F41.9 Anxiety disorder, unspecified; E87.6 Hypokalemia; R29.6 Repeated falls; T42.8X5A Adverse effect of antiparkinsonism drugs and other central muscle-tone depressants, initial encounter; I25.2 Old myocardial infarction; Z91.14 Patient's other noncompliance with medication regimen; Z91.81 History of falling; Y92.9 Unspecified place or not applicable
CPT/HCPCS: 36415; 70450; 80048; 80053; 81003; 81015; 82607; 82746; 83605; 83735; 84443; 84484; 85025; 85610; 86140; 87086; 93005; 99284; A9270-GY; G0378; G8978-GP-CK; G8979-GP-CJ; J1644; J3480

== ENCOUNTER 2023-05-06 12:16 | Inpatient (IN) ==
[2023-05-06 14:21] LABS: ABS Basophils 0.1 10^3/uL (0.0-0.1); ABS Eosinophils 0.4 10^3/uL (0.0-0.5); ABS Monocytes 0.8 10^3/uL (0.0-0.9); ABS Neutrophils 5.9 10^3/uL (1.5-7.6); Hematocrit 36.9 % (35-45); Hemoglobin 12.3 g/dL (11.5-14.3); Lymphocyte % 21.6 %; Mean Corpuscular Hemoglobin 27.5 pg (27-33); Mean Corpuscular Hgb Conc 33.3 g/dL (31-36); Mean Corpuscular Volume 82.7 fL (80-97); Mean Platelet Volume 7.6 fL (7.5-11.2); Platelet Count 338 10^3/uL (150-450); Red Blood Count 4.47 10^6/uL (3.63-4.92); White Blood Count 9.1 10^3/uL (3.8-11.8)
[2023-05-06 14:25] LABS: INR 1.06 (0.83-1.13)
[2023-05-06 14:43] LABS: High Sens Troponin Baseline < 3 pg/mL (<15)
[2023-05-06 15:02] LABS: TSH Ultra Thyroid Stim Horm 1.74 mcIU/mL (0.34-5.60)
[2023-05-06 15:05] LABS: ALT 4 U/L (7-52); AST 11 U/L (13-39); Albumin 4.1 g/dL (3.2-5.2); Albumin/Globulin Ratio 1.2 (1-3); Alkaline Phosphatase 119 U/L (35-149); Anion Gap 8 mmol/L (2-16); Blood Urea Nitrogen 23 mg/dL (6-24); CO2 Carbon Dioxide 26 mmol/L (22-32); Calcium 9.3 mg/dL (8.6-10.3); Chloride 107 mmol/L (101-111); Creatine Kinase 56 U/L (10-223); Creatinine, Serum 0.86 mg/dL (0.51-0.95); Globulin 3.4 g/dL (2-4); Glucose 97 mg/dL (70-100); Potassium 3.8 mmol/L (3.5-5.0); Sodium 141 mmol/L (135-145); Total Protein 7.5 g/dL (6.4-8.9)
[2023-05-06 15:35] LABS: High Sensitivity Troponin 1 Hr 3 pg/mL (<15)
[2023-05-06] MEDS ORDERED: NS 0.9% 1000 ml BAG 1,000 ML IV ONE (16:11)
[2023-05-06 22:45] LABS: Urine Appearance Cloudy; Urine Bilirubin Negative (Negative); Urine Blood 1+ (Negative); Urine Color Yellow; Urine Glucose Negative (Negative); Urine Ketones Trace (Negative); Urine Nitrite Positive (Negative); Urine Protein Negative (Negative); Urine Specific Gravity 1.015 (1.002-1.030); Urine Urobilinogen Negative (Negative)
[2023-05-06 22:54] LABS: Urine Bacteria 1+ (Absent); Urine Red Blood Cell 1+(3-5/hpf) (Absent); Urine White Blood Cell 1+(6-10/hpf) (Absent)
[2023-05-06] MEDS ORDERED: cefTRIAXone 1 gm/50 mL D5W 1 GM/50 ML BAG IV ONE (23:46)
[2023-05-07] MEDS: Enoxaparin 40 MG/0.4 ML SYR SUBCUT SCH ×3 (02:22→21:49)
[2023-05-07] MEDS: Carbidopa/Levodop 25/100 MG TAB PO SCH ×5 (03:17→21:40)
[2023-05-07 07:00] LABS: Hematocrit 33.8 % (35-45); Hemoglobin 11.1 g/dL (11.5-14.3); Mean Corpuscular Hemoglobin 27.3 pg (27-33); Mean Corpuscular Hgb Conc 32.8 g/dL (31-36); Mean Corpuscular Volume 83.3 fL (80-97); Mean Platelet Volume 7.6 fL (7.5-11.2); Platelet Count 321 10^3/uL (150-450); Red Blood Count 4.06 10^6/uL (3.63-4.92); Red Cell Distribution Width 16.1 % (12-17); White Blood Count 10.2 10^3/uL (3.8-11.8)
[2023-05-07 07:14] LABS: Calcium 8.3 mg/dL (8.6-10.3); Creatinine, Serum 0.84 mg/dL (0.51-0.95); Potassium 3.6 mmol/L (3.5-5.0)
[2023-05-07] MEDS ORDERED: Polyethylene Glycol 3350 17 GM PACKET PO PRN (13:40)
[2023-05-08 07:49] LABS: Magnesium 1.8 mg/dL (1.9-2.7)
[2023-05-08] MEDS: Carbidopa/Levodop 25/100 MG TAB PO SCH ×4 (09:08→21:09)
[2023-05-08 16:06] LABS: C Reactive Protein 4.34 mg/L (<8.01)
[2023-05-08] MEDS: Enoxaparin 40 MG/0.4 ML SYR SUBCUT SCH (21:19)
[2023-05-09 06:51] LABS: ABS Basophils 0.1 10^3/uL (0.0-0.1); ABS Eosinophils 0.6 10^3/uL (0.0-0.5); ABS Lymphocytes 3.5 10^3/uL (1.0-4.8); ABS Monocytes 1.1 10^3/uL (0.0-0.9); ABS Neutrophils 5.8 10^3/uL (1.5-7.6); ABS Nucleated RBC 0.01 10^3/ul; Eosinophil % 5.3 %; Hematocrit 33.3 % (35-45); Hemoglobin 11.2 g/dL (11.5-14.3); Lymphocyte % 31.5 %; Mean Corpuscular Hemoglobin 27.8 pg (27-33); Mean Corpuscular Hgb Conc 33.7 g/dL (31-36); Mean Corpuscular Volume 82.5 fL (80-97); Mean Platelet Volume 8.2 fL (7.5-11.2); Platelet Count 336 10^3/uL (150-450); Red Blood Count 4.04 10^6/uL (3.63-4.92); White Blood Count 11.1 10^3/uL (3.8-11.8)
[2023-05-09 07:06] LABS: Calcium 8.6 mg/dL (8.6-10.3); Creatinine, Serum 0.77 mg/dL (0.51-0.95); Magnesium 1.8 mg/dL (1.9-2.7); Potassium 3.9 mmol/L (3.5-5.0); eGFR CKD-EPI 79.9 (>60)
[2023-05-09] MEDS ORDERED: Magnesium Sulfate 2 gm BAG 2 GM/50 ML BAG IVPB ONE (07:40)
[2023-05-09] MEDS: Carbidopa/Levodop 25/100 MG TAB PO SCH ×4 (08:45→20:35)
[2023-05-09] MEDS: Enoxaparin 40 MG/0.4 ML SYR SUBCUT SCH (20:37)
[2023-05-09] MEDS ORDERED: Magnesium Hydroxide LIQ 30 ML UDC PO PRN (21:05)
[2023-05-09] MEDS ORDERED: Senna TAB 8.6 mg TAB PO PRN (21:05)
[2023-05-09] MEDS: Magnesium Hydroxide LIQ 30 ML UDC PO SCH (22:09)
[2023-05-10 06:08] LABS: Calcium 8.4 mg/dL (8.6-10.3); Creatinine, Serum 0.78 mg/dL (0.51-0.95); Magnesium 2.3 mg/dL (1.9-2.7); Potassium 3.9 mmol/L (3.5-5.0); eGFR CKD-EPI 78.7 (>60)
[2023-05-10] MEDS: Carbidopa/Levodop 25/100 MG TAB PO SCH ×4 (08:35→20:23)
[2023-05-10] MEDS: Magnesium Hydroxide LIQ 30 ML UDC PO SCH ×2 (08:36→20:27)
[2023-05-10] MEDS: Enoxaparin 40 MG/0.4 ML SYR SUBCUT SCH (20:22)
[2023-05-11] MEDS: Carbidopa/Levodop 25/100 MG TAB PO SCH ×4 (08:36→21:22)
[2023-05-11] MEDS: Magnesium Hydroxide LIQ 30 ML UDC PO SCH ×2 (08:38→21:23)
[2023-05-11] MEDS: Enoxaparin 40 MG/0.4 ML SYR SUBCUT SCH (21:21)
[2023-05-12] MEDS: Magnesium Hydroxide LIQ 30 ML UDC PO SCH (09:42)
[2023-05-12] MEDS: Carbidopa/Levodop 25/100 MG TAB PO SCH (09:43)
[2023-05-12 12:50] VITALS: BP 112/59
== END 2023-05-12 13:15 | DRG 57 ==
LOC: ED 12:16 → SUATTDRO 05-07 00:52 → EDHOLD 05-07 00:52 → MEDTELE 05-07 12:53
PROVIDERS: ADMIT Student in an Organized Health Care Education/Training Program; ATTEND Hospitalist